=== PATIENT | male | born 1955 | race Caucasian/White ===

== ENCOUNTER 2019-05-30 03:56 | Inpatient (IN) | payer MEDICARE, SELFPAY ==
[2019-05-30] VITALS (22 sets, daily range): BP systolic 103–209; BP diastolic 52–119; PULSE 64–109; RESP 14–23; TEMP 35.7–36.9; O2SAT 48–100; BMI 34.9
--- NOTE | ~2019-05-30 | XR_ITS ---
EXAMINATION: XR chest 1V portable DATE: 05/31/2019 06:27 INDICATION: Pneumonia. Pulmonary edema. TECHNIQUE: A single frontal view of the chest was obtained. COMPARISON: Chest single view 05/30/2019, chest CT 05/30/2019 FINDINGS: The patient is rotated to his left. There are airspace opacities at left lung base. There a re perihilar airspace opacities bilaterally. There is a small left pleural effusion. No pneumothorax. The heart size is normal. There is a left chest wall pacer with leads in the right atrium and right ventricle. The endotracheal tube tip is 5.6 cm above the kody. The nasogastric tube tip is beyond t he inferior margin of the radiograph, but at least to the stomach. IMPRESSION: 1. Worsened airspace opacities at left lung base and improved bilateral perihilar airspace opacities, consistent with pulmonary edema versus pneumonia. 2. Stable small left pleural effusion. Reviewed, dictated and finalized at location A. IMPRESSION: 1. Worsened airspace opacities at left lung base and improved bilateral perihil ar airspace opacities, consistent with pulmonary edema versus pneumonia. 2. Stable small left pleural effusion.
--- NOTE | ~2019-05-30 | XR_ITS ---
EXAMINATION: XR chest PICC line INDICATION: PICC insertion TECHNIQUE: Portable AP chest at 1424 hours COMPARISON: 0513 hours FINDINGS: A right upper extremity PICC has been inserted which appears to end at the superior cavoatr ial junction. Airspace opacities of the lung bases persist without significant change. The endotrache al tube ends approximately 5.7 cm above the kody. The nasogastric tube is followed as far as the s tomach. Its tip is beyond the inferior margin of the radiograph. A dual-lead cardiac pacemaker of the left chest wall ends with leads in expected locations. There is stable cardiomegaly. IMPRESSION: 1. Right upper extremity PICC ending at the superior cavoatrial junction. 2. Stable bibasilar airspace opacity, consistent with atelectasis versus pneumonia. 3. Cardiomegaly. Reviewed, dictated and finalized at location A. IMPRESSION: 1. Right upper extremity PICC ending at the superior cavoatrial junction. 2. Stable bibasilar airspace opacity, consistent with atelectasis versus pneumo gina. 3. Cardiomegaly.
--- NOTE | ~2019-05-30 | XR_ITS ---
EXAMINATION: XR chest 1V portable DATE: 06/04/2019 05:23 INDICATION: Pneumonia. Pulmonary edema. TECHNIQUE: A single frontal view of the chest was obtained. COMPARISON: Chest single view 06/03/2019, chest CT 05/30/2019 FINDINGS: The patient is rotated to his left. There are airspace opacities in the lower lung zones. T here is a small left pleural effusion. No pneumothorax. Cardiomegaly is noted. There is a left chest wall pacer with leads in the right atrium and right ventricle. The endotracheal tube tip is 5.9 cm ab ove the kody. The nasogastric tube tip is beyond the inferior margin of the radiograph, but at leas t to the stomach. IMPRESSION: 1. Stable airspace opacities in the lower lung zones, consistent with atelectasis versus pneumonia. 2. Stable small left pleural effusion. 3. Cardiomegaly. Reviewed, dictated and finalized at location A. IMPRESSION: 1. Stable airspace opacities in the lower lung zones, consistent with atelectas is versus pneumonia. 2. Stable small left pleural effusion. 3. Cardiomegaly.
--- NOTE | ~2019-05-30 | XR_ITS ---
EXAMINATION: XR chest 1V portable DATE: 06/02/2019 05:53 INDICATION: Pneumonia. Pulmonary edema. TECHNIQUE: A single frontal view of the chest was obtained. COMPARISON: Chest single view 06/01/2019 FINDINGS: There are airspace opacities in the perihilar regions and at left lung base. There is a sma ll left pleural effusion. No pneumothorax. Cardiomegaly is noted. There is a left chest wall pacer wi th leads in the right atrium and right ventricle. The endotracheal tube tip is 5.1 cm above the patrick a. The nasogastric tube tip is beyond the inferior margin of the radiograph, but at least to the stom ach. IMPRESSION: 1. Airspace opacities in the perihilar regions and at left lung base with interval improvement, consi stent with pulmonary edema versus pneumonia. 2. Small left pleural effusion. 3. Cardiomegaly. Reviewed, dictated and finalized at location A. IMPRESSION: 1. Airspace opacities in the perihilar regions and at left lung base with inter ayo improvement, consistent with pulmonary edema versus pneumonia. 2. Small left pleural effusion. 3. Cardiomegaly.
--- NOTE | ~2019-05-30 | CT_ITS ---
EXAMINATION: CT brain wo con INDICATION: Cardiac arrest today COMPARISON: None TECHNIQUE: Standard unenhanced head CT. The dose-length product (DLP) was 908.00 mGy-cm. The mA was a djusted according to patient size. Iterative reconstruction technique was employed. FINDINGS: There is no intracranial hemorrhage, acute infarction, or abnormal mass lesion. The ventric les are normal. There is no abnormal mass effect or midline shift. The farias-white matter differentiat ion is normal. The basal cisterns are patent. The orbits are normal. The paranasal sinuses, mastoids and calvarium are normal. IMPRESSION: 1. No acute intracranial abnormality. Reviewed, dictated and finalized at location B.
--- NOTE | ~2019-05-30 | XR_ITS ---
EXAMINATION: XR chest ET placement INDICATION: Endotracheal tube insertion TECHNIQUE: Portable AP chest at 1107 hours COMPARISON: None available FINDINGS: An endotracheal tube has been inserted which ends 4.8 cm above the kody. The nasogastric tube is followed as far as the stomach. Its tip is beyond the inferior margin of the radiograph. Card iomegaly is noted. Diffuse interstitial and airspace opacities are present. A dual-lead cardiac pacem [place] of the left chest wall ends with leads in expected locations. IMPRESSION: 1. Endotracheal and nasogastric tubes in adequate position. 2. Diffuse lung disease, likely pulmonary edema. 3. Cardiomegaly. Reviewed, dictated and finalized at location B.
--- NOTE | ~2019-05-30 | CT_ITS ---
EXAMINATION: CTA chest PE protocol DATE: 05/30/2019 04:42 INDICATION: Cardiac arrest. TECHNIQUE: Computed tomography angiography (CTA) of the chest was performed with 100 mL Omnipaque-350 intravenous contrast timed to evaluate the pulmonary arteries. Coronal maximum intensity projection 3D-reconstructions were created by the technologist. Automated exposure control and iterative reconst ruction technique were employed. The dose-length product was 1104.71 mGy-cm. COMPARISON: Chest CT 12/11/2014 FINDINGS: Motion artifact is noted. There are small pleural effusions. There is mild atelectasis bila terally. There is smooth septal thickening bilaterally. There are groundglass opacities in the perihi lar regions and lower lobes. There are also airspace opacities in superior segment right lower lobe. Cardiomegaly is noted. There is a small pericardial effusion. There are coronary artery calcification s. There is a left chest wall pacer with leads in the right atrium and right ventricle. The endotrach eal tube tip is in expected position above the kody. There is mediastinal, bilateral hilar, and tavia ateral supraclavicular lymphadenopathy. For example, a left supraclavicular node measures 2.1 x 1.5 c m. The liver demonstrates a nodular surface contour. Periportal lymphadenopathy is noted. There is no pulmonary embolus. There are bridging endplate osteophytes at multiple levels in the spine, consiste nt with diffuse idiopathic skeletal hyperostosis (DISH). There are acute fractures of the anterior ri ght fourth through sixth ribs and left fifth rib. IMPRESSION: 1. No pulmonary embolus. Sensitivity is moderately decreased by motion artifact. 2. Diffuse lung disease, likely moderate pulmonary edema. 3. Airspace and groundglass opacities in superior segment right lower lobe, consistent with pneumonia . 4. Small pleural effusions. 5. Cardiomegaly. 6. Small pericardial effusion. 7. Nodular liver surface suspicious for cirrhosis. 8. Bilateral acute anterior rib fractures. 9. Chronic chest lymphadenopathy. Abdominal lymphadenopathy not included on the prior CT. These findi ngs are likely reactive. Reviewed, dictated and finalized at location A. IMPRESSION: 1. No pulmonary embolus. Sensitivity is moderately decreased by motion artifact . 2. Diffuse lung disease, likely moderate pulmonary edema. 3. Airspace and groundglass opacities in superior segment right lower lobe, con sistent with pneumonia. 4. Small pleural effusions. 5. Cardiomegaly. 6. Small pericardial effusion. 7. Nodular liver surface suspicious for cirrhosis. 8. Bilateral acute anterior rib fractures. 9. Chronic chest lymphadenopathy. Abdominal lymphadenopathy not included on the prior CT. These findings are likely reactive.
--- NOTE | ~2019-05-30 | XR_ITS ---
EXAMINATION: XR abdomen NG/feed tube insert DATE: 05/30/2019 08:05 INDICATION: Nasogastric tube placement. TECHNIQUE: A supine view of the abdomen was obtained. COMPARISON: None. FINDINGS: The lower abdomen is excluded. There are no dilated loops of bowel. The nasogastric tube ti p is in the stomach. There are pacer wires in right atrium and right ventricle. IMPRESSION: 1. Nasogastric tube tip in the stomach. Reviewed, dictated and finalized at location A.
--- NOTE | ~2019-05-30 | CT_ITS ---
EXAMINATION: CT brain wo con DATE: 06/04/2019 10:08 INDICATION: Seizure. Acute encephalopathy. TECHNIQUE: Computed tomography (CT) of the head was performed without intravenous contrast. The mA wa s adjusted according to patient size. Iterative reconstruction technique was employed. The dose-lengt h product was 681.00 mGy-cm. COMPARISON: Head CT 05/30/2019 FINDINGS: There is no intracranial hemorrhage, acute infarction, or abnormal intracranial mass lesion . There is a developmental venous anomaly in posterior left frontal lobe. The ventricles are normal i n size. The orbits are normal. There is mild mucosal thickening in the paranasal sinuses. The mastoid air cells are normal. IMPRESSION: 1. Normal brain. Reviewed, dictated and finalized at location A. IMPRESSION: 1. Normal brain.
--- NOTE | ~2019-05-30 | XR_ITS ---
XR chest 1V portable DATE: 05/30/2019 14:59 INDICATION: Intubation TECHNIQUE: Portable AP chest on 05/30/2019 at 1450 hours COMPARISON: 05/30/2019 portable AP chest at 1107 hours FINDINGS: The endotracheal tube tip is 3.3 cm above the kody in satisfactory position. A nasogastri c tube is noted in the stomach. Left dual-lead pacemaker/defibrillator with leads overlying right atrium and right ventricle. There is pulmonary vascular congestion and redistribution and there are bilateral primarily central a nd lower lung infiltrates suggesting pulmonary edema. Superimposed pneumonia or aspiration is not exc luded. Small pleural effusions are suggested. IMPRESSION: Congestive changes, pulmonary edema, without significant change since 05/29 at 1107 hours ET and NG tubes in satisfactory position Reviewed, dictated and finalized at location A. IMPRESSION: Congestive changes, pulmonary edema, without significant change sin ce 05/29 at 1107 hours ET and NG tubes in satisfactory position
--- NOTE | ~2019-05-30 | XR_ITS ---
EXAMINATION: XR chest 1V portable DATE: 06/05/2019 05:46 INDICATION: Intubated. TECHNIQUE: A single frontal view of the chest was obtained. COMPARISON: Chest single view 06/04/2019, chest CT 05/30/2019 FINDINGS: There are airspace opacities in the perihilar regions and at left lung base. There is a sma ll left pleural effusion. No pneumothorax. The heart size is normal. There is a left chest wall pacer with leads in the right atrium and right ventricle. The endotracheal tube tip is 6.0 cm above the ca homero. The nasogastric tube tip is beyond the inferior margin of the radiograph, but at least to the s tomach. A right upper extremity peripherally inserted central venous catheter (PICC) is seen with tip at the superior cavoatrial junction. IMPRESSION: 1. Airspace opacities in the perihilar regions and at left lung base with interval worsening at left perihilar region, consistent with pulmonary edema versus pneumonia. 2. Stable small left pleural effusion. Reviewed, dictated and finalized at location A. IMPRESSION: 1. Airspace opacities in the perihilar regions and at left lung base with inter ayo worsening at left perihilar region, consistent with pulmonary edema versus pneumonia. 2. Stable small left pleural effusion.
--- NOTE | ~2019-05-30 | XR_ITS ---
EXAMINATION: XR chest 1V portable DATE: 06/03/2019 05:55 INDICATION: Pneumonia. Pulmonary edema. TECHNIQUE: frontal view of the chest was obtained. COMPARISON: Chest radiograph dated 06/02/2019 FINDINGS: Endotracheal tube tip 3.5 cm above the kody. Nasogastric tube extends below the left hemidiaphragm with distal tip collimated off the study. Improvement in airspace opacities at the left lower lung zone. Decreased small left pleural effusion. Right lung is clear. No pneumothorax or right-sided pleural effusion. The cardiomediastinal silhouet te is normal. Dual lead pacemaker/AICD seen with leads projecting over the expected locations of the right atrium and right ventricle. IMPRESSION: 1. Significant improvement in opacities in the left lower lung zone which given the rapidity of impro vement likely represented pulmonary edema and/or atelectasis although pneumonia not excludable. 2. Decreasing small left pleural effusion. Reviewed, dictated and finalized at location A. IMPRESSION: 1. Significant improvement in opacities in the left lower lung zone which given the rapidity of improvement likely represented pulmonary edema and/or atelecta sis although pneumonia not excludable. 2. Decreasing small left pleural effusion.
--- NOTE | ~2019-05-30 | XR_ITS ---
EXAMINATION: XR chest 1V portable DATE: 06/01/2019 06:30 INDICATION: Pneumonia. Pulmonary edema. TECHNIQUE: A single frontal view of the chest was obtained. COMPARISON: Chest single view 05/31/2019, chest CT 05/30/2019 FINDINGS: The patient is rotated to his left. There are airspace opacities in the mid and lower lung zones, worst at left lung base. There are small pleural effusions. No pneumothorax. Cardiomegaly is n oted. There is a left chest wall pacer with leads in the right atrium and right ventricle. The endotr acheal tube tip is 5.2 cm above the kody. The nasogastric tube tip is in the stomach. IMPRESSION: 1. Unchanged airspace opacities in the mid and lower lung zones, worse at left lung base, consistent with pulmonary edema versus pneumonia. 2. Small pleural effusions. 3. Cardiomegaly. Reviewed, dictated and finalized at location A.
--- NOTE | ~2019-05-30 | US_ITS ---
EXAMINATION: US venous doppler [facility] DATE: 05/30/2019 11:11 INDICATION: Lower limb swelling. TECHNIQUE: Grayscale ultrasound images without and with compression and Doppler ultrasound images of the bilateral lower extremity veins were obtained. COMPARISON: Ultrasound 12/12/2014 FINDINGS: The visualized portions of right common femoral vein, profunda (deep) femoral vein, femoral vein, pop liteal vein, and posterior tibial veins are patent. The visualized portions of left common femoral vein, profunda femoral vein, femoral vein, popliteal v ein, and posterior tibial veins are patent. In medial left calf, there is a 6.4 x 2.3 x 5.8 cm hypoec hoic mass. IMPRESSION: 1. No deep venous thrombosis. 2. Mass in the medial left calf, likely a hematoma. Reviewed, dictated and finalized at location A.
[2019-05-30 04:06] LABS: Glucose Point of Care 193 (65-105)
[2019-05-30 04:33] LABS: Basophils Absolute Auto 0.1 K/mm3 (0.0-0.1); Basophils Percent Auto 0.6 % (0.2-1.2); Eosinophils Absolute Auto 0.4 K/mm3 (0-0.3); Eosinophils Percent Auto 1.7 % (0-4.4); Hematocrit 49.1 % (42.0-52.0); Hemoglobin 14.8 g/dL (14.0-18.0); Immature Granulocyte Absolute 0.19 K/mm3 (0.00-0.031); Immature Granulocyte Percent A 0.8 % (0-0.5); Lymphocytes Absolute Auto 10.63 K/mm3 (0.9-3.2); Lymphocytes Percent Auto 46.8 % (18.3-44.2); Mean Corpuscular HGB Conc 30.1 g/dl (32-36); Mean Corpuscular Hemoglobin 28.1 pg (26-34); Mean Corpuscular Volume 93.2 fl (80-100); Mean Platelet Volume 10.8 fl (7.4-10.4); Monocytes Absolute Auto 0.9 K/mm3 (0.1-0.6); Monocytes Percent Auto 3.9 % (2.6-8.5); Neutrophils Absolute Auto 10.5 K/mm3 (1.3-6.7); Neutrophils Percent Auto 46.2 % (45.5-73.1); Nucleated Red Blood Cells Perc 0.1 % (0.0-0.2); Platelet Count Result 259 k/mm3 (150-375); Red Blood Count 5.27 M/mm3 (4.6-6.20); Red Cell Distribution Width 15.3 % (11.5-14.5); White Blood Count 22.7 K/mm3 (4.5-10.0)
--- NOTE | 2019-05-30 04:36 | ED.SOB ---
HPI - SOB/Dyspnea General Chief Complaint: Shortness of Breath/Dyspnea Stated Complaint: sob Time Seen by Provider: 05/30/19 04:13 History of Present Illness HPI Narrative: Patient is a 64-year-old male who presents ER patient has history of CHF and is on apixaban for atrial fibrillation. He has an implanted pacemaker and defibrillator. 1 week ago patient was on a ladder and fell injuring his left leg. Left leg has been bruised and swollen over the last week. Tonight he was unable to get comfortable while laying in bed and was generally restless according to the . He then went up to sit in his chair and then told his that he could not breathe. She placed him on his CPAP and then they came to the ER by private vehicle. Upon entering the room patient lost pulses and CPR was started. History was obtained from the . Related Data Home Medications Medication Instructions Recorded Confirmed apixaban 5 mg tablet 5 mg PO BID 04/24/19 aspirin 81 mg tablet,delayed 81 mg PO DAILY 04/24/19 release canagliflozin 100 mg tablet 100 mg PO DAILY 04/24/19 furosemide 40 mg tablet 40 mg PO QAM 04/24/19 lisinopril 20 mg tablet 20 mg PO DAILY 04/24/19 simvastatin 20 mg tablet 20 mg PO DAILY 04/24/19 Allergies Allergy/AdvReac Type Severity Reaction Status Date / Time No Known Allergies Allergy Unverified 12/11/14 10:28 Review of Systems Review of Systems: ROS unobtainable: Yes unobtainable due to medical condition PMFSH Past Medical History Medical History (Updated 05/30/19 @ 06:09 by Graham Veliz MD) Atherosclerotic heart disease of [place] coronary artery with other forms of angina pectoris Enlarged prostate without lower urinary tract symptoms (luts) Essential (primary) hypertension Hepatitis C antibody test negative (12/12/16) Metabolic syndrome Mixed hyperlipidemia Obesity, unspecified Obstructive sleep apnea (adult) (pediatric) Old myocardial infarction Pacemaker Paroxysmal atrial fibrillation Type 2 diabetes mellitus without complications Social History Social History Smoking status: Never smoker Alcohol intake: never Exam Narrative: Exam Narrative: GENERAL: Obese and unresponsive. HEAD: Normocephalic, atraumatic. EYES: Pupils mid dilated and sluggishly reactive. ENT: Mucous membranes moist. CHEST: No spontaneous respirations. HEART: Pulseless, poor capillary refill. ABDOMEN: Soft, nontender, nondistended. EXTREMITIES: No spontaneous movements. Left lower extremity larger than the right lower extremity with bruising and palpable hematomas from the knee down. SKIN: Warm, pale/normal, dependent ecchymosis left lower extremity. NEURO: GCS 3. Procedures Intubation Intubation #1: Intubation Date: 05/30/19 Intubation Time: 04:10 Time out performed: No sedative: none Laryngoscope: Yomi (3) Tube Size (cm): 7.5 Method of Intubation: orotracheal Number of Attempts: 1 Tube Placement Confirmation: equal breath sounds bilaterally, no breath sounds over epigastrium and confirmation by capnometry Patient Tolerated Procedure: well and no complications Intubation Complications: none IO Right Tibia: IO Date: 05/30/19 IO Time: 04:06 Time Out Performed: No Local Anesthetic: none Prep: other (alcohol wipe) IO Instrument Used to Penetrate the Cortex: battery powered IO drill Post Procedure: aspirated marrow and easily flushes Patient Tolerated Procedure: well MDM - SOB/Dyspnea Lab Data Result diagrams: 05/30/19 04:10 05/30/19 04:10 Labs: Lab Results 05/30/19 05/30/19 05/30/19 Range/Units 04:04 04:10 04:10 WBC Pending RBC Pending Hgb Pending Hct Pending MCV Pending MCH Pending MCHC Pending RDW Pending Plt Count Pending MPV Pending
[2019-05-30 04:40] LABS: INR 1.1; Prothrombin Time 13.4 Seconds (11.1-14.7)
[2019-05-30 04:41] LABS: Partial Thromboplastin Time 28.1 SECONDS (22.3-36.8)
[2019-05-30 04:50] LABS: Lactic Acid Reflex 7.6 mmol/L (0.7-2.1)
[2019-05-30 04:59] LABS: Base Excess ABG -10.9 mEq/l (+/-2.0); Fractional Inspired Oxygen 100 %; HCO3 ABG 18.8 mEq/l (22.0-26.0); Methemoglobin ABG 0.3 %THb (0-1.5); Oxygen Content ABG 18.5 %vol (16.0-22.0); Oxygen Saturation ABG 98.4 % (95.0-100.0); Oxyhemoglobin 96.9 % THb (90.0-100.0); PCO2 ABG 58.5 mmHg (35.0-45.0); PO2 ABG 159.5 mmHg (80.0-100.0); Reduced Hemoglobin 1.8 %THb (0-5.0); Total Hemoglobin 13.4 g/dL (12.0-18.0)
[2019-05-30 05:00] LABS: pH ABG 7.124 (7.350-7.450)
--- NOTE | 2019-05-30 05:00 | ECG_ITS ---
Measurements Intervals [place] Rate: 84 P: 143 CA: 152 QRS: 119 QRSD: 184 T: -47 QT: 434 QTc: 513 Interpretive Statements ELECTRONIC VENTRICULAR PACEMAKER FUSION COMPLEX BASELINE ARTIFACT- I, III, AVR, AVL, AVF, V1-V3 NO FURTHER INTERPRETATION IS POSSIBLE ATYPICAL ECG Electronically Signed On 05-30-2019 8:23:35 CDT by Lang Trevino D.O.
[2019-05-30 05:01] LABS: Device VENTILATOR; Modified Allen's Test Pass; Site Drawn RIGHT RADIAL
[2019-05-30 05:02] LABS: Arterial Blood Gas PEEP 5 cmH2O; Arterial Blood Gas Tidal Volume 500 ml; Arterial Blood Gas Vent Mode CMV; Arterial Blood Gas Ventilator rate 14 /MIN
[2019-05-30 05:30] LABS: NT Pro B Type Natriuretic Pept 1030 PG/ML (5-100)
[2019-05-30] MEDS: MIDAZOLAM HCL 2 MG/2 ML VIAL IV PUSH (05:40)
[2019-05-30 05:51] LABS: Alkaline Phosphatase 57 U/L (38-126); Aspartate Amino Transferase 27 U/L (17-59); Blood Urea Nitrogen 17 mg/dL (9-20); Calcium 8.5 mg/dL (8.4-10.2); Carbon Dioxide 20 mmol/L (22-30); Chloride 103 mmol/L (98-107); Estimated CRCL calculation 117 ml/min; Estimated Glomerular Filt Rate > 60; Glucose 301 mg/dL (75-110); Potassium 4.3 mmol/L (3.4-5.0); Sodium 141 mmol/L (137-145); Troponin I 0.252 ng/mL (0.000-0.034)
[2019-05-30] MEDS: MIDAZOLAM HCL 50 MG in DEXTROSE 5% 90 ML IV CONT ×2 (06:26→08:39)
[2019-05-30] MEDS: FUROSEMIDE INJ 40 MG/4 ML VIAL IV PUSH ×2 (06:27→17:03)
[2019-05-30 06:37] LABS: Alanine Aminotransferase 25 U/L (4-50)
--- NOTE | 2019-05-30 07:21 | PC.NURSE ---
Fentanyl is going at 2.5ml/hr per MD Veliz verbal order to run at 25mcg/hr. Medication bag states to run at 0ml/hr. Called pharmacy ([facility]) states to run at 2.5ml far as conversion.
--- NOTE | 2019-05-30 07:23 | PC.NURSE ---
Resp called to come evaluate tube due to secretions being seen, this RN suctioned once
[2019-05-30 07:24] LABS: Reflex Lactic Acid Yes or No Add Lactic
--- NOTE | 2019-05-30 07:50 | PC.NURSE ---
COVID-19 swab obtained and sent to the lab.
[2019-05-30] MEDS: levETIRAcetam 1000MG/NACL100ML 1,000 MG/100 ML BAG 400 MG IVPB (09:20)
[2019-05-30] MEDS: PANTOPRAZOLE SODIUM IV 40 MG VIAL IV PUSH (09:21)
[2019-05-30] MEDS: ENOXAPARIN 40 MG/0.4 ML SYRINGE SUB-Q (09:21)
[2019-05-30 10:08] LABS: Alveolar/Arterial O2 Gradient 386.8 mmHg; Base Excess ABG -2.4 mEq/l (+/-2.0); Fractional Inspired Oxygen 70 %; HCO3 ABG 22.3 mEq/l (22.0-26.0); Oxygen Content ABG 18.3 %vol (16.0-22.0); Oxygen Saturation ABG 94.2 % (95.0-100.0); Oxyhemoglobin 92.9 % THb (90.0-100.0); PCO2 ABG 38.3 mmHg (35.0-45.0); PO2 ABG 71.1 mmHg (80.0-100.0); PO2 FiO2 Ratio Arterial Blood 1.02 %; Site Drawn LEFT RADIAL; pH ABG 7.383 (7.350-7.450)
[2019-05-30 10:09] LABS: Arterial Blood Gas PEEP 8 cmH2O; Arterial Blood Gas Tidal Volume 500 ml; Arterial Blood Gas Vent Mode CMV; Arterial Blood Gas Ventilator rate 18 /MIN; Device VENTILATOR; Modified Allen's Test Pass
--- NOTE | 2019-05-30 10:53 | ADMGEN ---
This patient, Andrea Jefferson, was admitted to Intensive Care Unit-3. Patient/family oriented to hospital policies and general routines including ID bracelet, bed and alarms, visiting hours, pain management, procedures, bathroom and other care routines, personal items, smoking policy, room service/diet, and visiting hours. Valuables list has been completed. Information on how to activate the Rapid Response Team has been discussed. Patient/Family are encouraged to report perceived risks to care and to ask questions if they do not understand what they are told or what they should do.
--- NOTE | 2019-05-30 10:53 | PC.NURSE ---
PATIENTS ([facility]) CALLED TO COMPLETE ADMISSION. UPDATES GIVEN AND ALL QUESTIONS ANSWERED.
[2019-05-30 11:00] LABS: Lactic Acid 1.7 mmol/L (0.7-2.1)
[2019-05-30 11:04] LABS: CRP 2.5 mg/dL (<1.0); Lactate Dehydrogenase 625 U/L (313-618)
[2019-05-30 11:36] LABS: D Dimer 3.88 ug/mL (<0.48)
--- NOTE | 2019-05-30 12:00 | WPDCNINT ---
Assessment and Plan Assessment and plan (1) Acute respiratory failure: Code(s): J96.00 - Acute respiratory failure, unspecified whether with hypoxia or hypercapnia Status: Acute Assessment and Plan: patient presented with acute respiratory failure requiring intubation - currently on mechanical ventilation, CMV mode, 8 of PEEP, 70% FiO2 - chest x-ray and ABGs reviewed - will order albuterol and Spiriva MDI - continue fentanyl Versed infusion for sedation and ventilator synchrony (2) Cardiopulmonary arrest with successful resuscitation: Code(s): I46.9 - Cardiac arrest, cause unspecified Status: Acute Assessment and Plan: patient with cardiac arrest, ROSC within 10 minutes. Mainly a respiratory per ED physician - continue full mechanical ventilation, ventilator adjusted after reviewing this chest x-ray and ABGs - continue diuresis - continue vanc and Zosyn - SARs-COV-2 PCR has been sent - leukocytosis with normal lymphocytes, normal ferritin, elevated LDH, mildly elevated CRP. Calcitonin pending, D-dimer elevated (3) CHF (congestive heart failure): Qualifiers: Heart failure chronicity: unspecified Heart failure type: unspecified Qualified Code(s): I50.9 - Heart failure, unspecified Code(s): I50.9 - Heart failure, unspecified Status: Acute Assessment and Plan: patient with history of heart failure, AICD, dual chamber, interrogated this morning,no shocks were noted, patient was in AFib Earlier on the day of admission. - echocardiogram ordered and pending report - continue diuresis and mechanical ventilation - (4) Pneumonia: Qualifiers: Laterality: right Lung location: lower lobe of lung Pneumonia type: due to unspecified organism Qualified Code(s): J18.9 - Pneumonia, unspecified organism Code(s): J18.9 - Pneumonia, unspecified organism Status: Acute Assessment and Plan: CT scan showed right-sided pneumonia, given patient's condition, patient was started on vancomycin and Zosyn - cultures have been obtained - lactic acid normalized - blood cultures obtained and pending - Sputum cultures on (5) Type 2 diabetes mellitus without complications: Qualifiers: Diabetes mellitus salvage determiner insulin use: without usp use Qualified Code(s): E11.9 - Type 2 diabetes mellitus without complications Code(s): E11.9 - Type 2 diabetes mellitus without complications Status: Acute Assessment and Plan: sliding scale insulin and Accu-Cheks (6) Mixed hyperlipidemia: Code(s): E78.2 - Mixed hyperlipidemia Status: Acute Assessment and Plan: continue statin (7) Paroxysmal atrial fibrillation: Code(s): I48.0 - Paroxysmal atrial fibrillation Status: Acute Assessment and Plan: history of proximal AFib, currently in sinus rhythm rate control, will continue to monitor. Patient on Eliquis at home, will continue (8) DVT prophylaxis: Code(s): Z29.9 - Encounter for prophylactic measures, unspecified Status: Acute Assessment and Plan: DVT prophylaxis: Eliquis Stress ulcer prophylaxis: Protonix Additional Plan discussed with aidee Maradiaga with patient's condition and plan of care. I answered all questions. I was also able to obtain an adequate history From her . Code status: Full code Critical care time spent: 48 minutes Due to a high probability of clinically significant, life threatening deterioration, the patient required my highest level of preparedness to intervene emergently and I personally spent this critical care time directly and personally managing the patient. This critical care time included obtaining a history; examining the patient; pulse oximetry; ordering and review of studies; arranging urgent treatment with development of a management plan; evaluation of patient's response to treatment; frequent reassess
[2019-05-30 12:19] LABS: Glucose Point of Care 246 (65-105)
--- NOTE | 2019-05-30 12:41 | PM.IMHP ---
H&P: HPI History of Present Illness Chief complaint: Pneumonia, CHF Narrative: Date of visit 05/29 [id number] Andrea Jefferson is a 64 year old white male with type 2 diabetes mellitus is obstructive sleep apnea and status post AICD for VFib arrest in 2014 and history of combined systolic diastolic heart failure who presented to the emergency room by private vehicle acutely short of breath. Shortly after entering exam room became apneic pulseless and CPR was instituted. ROSC was estimated to occur within 10 minutes the thought to be primary a respiratory arrest. He was intubated and transferred to the ICU after IV Lasix seeing good diuresis. Patient apparently had been feeling well on somewhat short of breath according to the records starting last evening. CTA of the chest revealed no emboli but there was pneumonia with some ground glass appearance so patient was also tested for COVID. Patient is unresponsive in the ICU and history is obtained totally from the chart. Significantly the patient did have a cardiac catheterization in 2009 with normal coronary arteries. Review of Systems Review of Systems: Narrative: unobtainable at this time since patient is intubated and unresponsive. records indicates he had been doing well till approximately 24-48 hours prior to admission. He had fallen bruising his left leg approximately a week ago [facility] Past Medical History Medical History (Updated 05/30/19 @ 12:51 by Omar Dodson MD) Atherosclerotic heart disease of [place] coronary artery with other forms of angina pectoris Enlarged prostate without lower urinary tract symptoms (luts) Essential (primary) hypertension Hepatitis C antibody test negative (12/12/16) Metabolic syndrome Mixed hyperlipidemia Obesity, unspecified Obstructive sleep apnea (adult) (pediatric) Old myocardial infarction Pacemaker Paroxysmal atrial fibrillation Type 2 diabetes mellitus without complications Social History Social History Smoking status: Never smoker Alcohol intake: never Substance use: never Gender identity (if verbalized by the patient): Male Spiritual care concerns: No Agree to blood products: Yes Meds Home Medications and Allergies Home Medications Medication Instructions Recorded Confirmed Type carvedilol 25 mg tablet 25 mg PO BID #30 tablet 03/04/19 05/30/19 Rx glipizide 5 mg tablet 5 mg PO BID #30 tablet 03/04/19 05/30/19 Rx metformin 850 mg tablet 850 mg PO TID #30 tablet 03/04/19 05/30/19 Rx potassium chloride 10 mEq 10 meq PO DAILY #30 cap 03/04/19 05/30/19 Rx capsule,extended release amlodipine 10 mg tablet 10 mg PO DAILY #90 tablet 04/17/19 05/30/19 Rx apixaban 5 mg tablet 5 mg PO BID 04/24/19 05/30/19 History aspirin 81 mg tablet,delayed 81 mg PO DAILY 04/24/19 05/30/19 History release canagliflozin 100 mg tablet 100 mg PO DAILY 04/24/19 05/30/19 History furosemide 40 mg tablet 40 mg PO QAM 04/24/19 05/30/19 History lisinopril 20 mg tablet 20 mg PO DAILY 04/24/19 05/30/19 History simvastatin 20 mg tablet 20 mg PO DAILY 04/24/19 05/30/19 History Allergies Allergy/AdvReac Type Severity Reaction Status Date / Time No Known Allergies Allergy Unverified 12/11/14 10:28 Vital Signs Vital Signs - 24 hr 05/30/19 04:05 05/30/19 04:25 05/30/19 04:52 Temperature Pulse Rate 68 Respiratory Rate Blood Pressure 157/116 H Pulse Oximetry 100 48 L 05/30/19 05:20 05/30/19 07:31 05/30/19 07:56 Temperature 36.3 C L 35.8 C L Pulse Rate 66 79 64 Respiratory Rate 14 Blood Pressure 134/89 122/74 Pulse Oximetry 99 99 100 05/30/19 08:40 05/30/19 10:14 Temperature 35.7 C L Pulse Rate 69 Respiratory Rate 16 Blood Pressure 131/78 Pulse Oximetry 95 64 L Exam Narrative: Exam Narrative: blood pressure is 130/78 pulse is 70 saturating 100% on FiO2 of 100% with a peep of 5 on the ventilator. Afebrile pupils are equal and sluggish s
[2019-05-30] MEDS: INSULIN ASPART (*BKC) 100 UNITS/ML SUB-Q (13:20)
--- NOTE | 2019-05-30 14:11 | PM.CNCAR ---
Assessment and Plan Additional Plan this is a 64-year-old man who has a history of a previously established nonischemic cardiomyopathy who also now apparently has the history of paroxysmal atrial fib and a cardiac arrest that was treated at [facility] after which she has a permanently implantable [employer] ICD. He has a acute respiratory failure event prompting intubation and placement on mechanical ventilator. This appears to be primarily AVR respiratory event there were no ventricular arrhythmias or evidence of a cardiac arrest after his device was interrogated. His white count is elevated I would have to be highly suspicious that this is a acute respiratory event related to dasilva virus. Others that have evaluated this patient apparently have thought the is low risk for this. 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 Aggressive supportive care is already being delivered which is appropriate. At this time I do not think there are any specific cardiac recommendations to make. Fantasma Herrera MD [facility] History of Present Illness History of Present Illness Consult date/time: Date of service:05/30/19 14:11 Reason For Visit: Pneumonia, CHF Narrative: This is a 64year-old patient I am seeing at the request of the hospitalist because apparently he was admitted earlier this morning and had acute respiratory failure shortness of breath coming in from home. He was in respiratory extremis was intubated in the emergency department and admitted to the ICU for further evaluation and care. 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 This is a patient who has a history of will was felt to be a mild nonischemic cardiomyopathy primarily with right ventricular dysfunction and evidence of pulmonary hypertension that was attributed to suspected sleep apnea when he was evaluated by myself back in 2009. At that time he was found angiographically to have no evidence of significant coronary artery disease he did have some RV dysfunction and significant pulmonary hypertension with PA systolic pressures in the mid 60s. He was last seen by our practice back in 2012 he was arranged to have a routine office follow-up and failed those appointments and did not lower all wish to come back for further evaluation. He subsequently has become established with the cardiology department at [facility] apparently he has a history of now also paroxysmal atrial fibrillation as well as a history of a cardiac arrest which is mentioned in their notes the details of which are not specified. But because of this he has a implantable defibrillator as well. Apparently last evening while he was at home he began to experience shortness of breath this became severe he was brought to the hospital in his private vehicle and was a good as stated above intubated in the emergency department. He has not been running a fever from what I can see he does have a significant leukocytosis and bilateral pulmonary congestion on his chest x-ray for my review worse on the right than on the left. Troponin levels were sampled and are modestly elevated. He is E electrocardiogram shows an electronic AV sequentially paced rhythm at times has intrinsic sinus rhythm that appears to be appropriately stents. The staff did have the [employer] representative phlebotomy services interrogate his pacemaker /ICD there were no shocks delivered there was no evidence of a cardiac arrest. It appears clinically that this was primarily a respiratory event. His home medical regimen at this time
[2019-05-30] MEDS: LORAZEPAM INJ 2 MG/ML VIAL (14:54)
--- NOTE | 2019-05-30 15:02 | PC.NURSE ---
PATIENT TRANSFERRED TO [facility].
[2019-05-30] MEDS: APIXABAN 5 MG TABLET PO (17:03)
[2019-05-30 17:21] LABS: Glucose Point of Care 182 (65-105)
[2019-05-30] MEDS: ALBUTEROL SULFATE NEB 2.5 MG/0.5 ML INH 5 MG INHALATION (19:59)
[2019-05-30] MEDS: IPRATROPIUM BR 0.02% INH SOLN 0.5 MG/2.5 ML VIAL INHALATION (20:00)
[2019-05-30 21:29] LABS: Glucose Point of Care 162 (65-105)
[2019-05-30] MEDS: levETIRAcetam 500MG/NACL 100ML 500 MG/100 ML BAG 400 MG IVPB (21:45)
[2019-05-30] MEDS: MIDAZOLAM HCL 50 MG in DEXTROSE 5% 90 ML 6 MG IV CONT (23:24)
[2019-05-31] VITALS (30 sets, daily range): BP systolic 126–157; BP diastolic 55–80; PULSE 64–106; RESP 14–16; TEMP 36.6–38; O2SAT 97–100
[2019-05-31] MEDS: IPRATROPIUM BR 0.02% INH SOLN 0.5 MG/2.5 ML VIAL INHALATION ×4 (02:24→20:06)
[2019-05-31] MEDS: ALBUTEROL SULFATE NEB 2.5 MG/0.5 ML INH 5 MG INHALATION ×4 (02:24→20:06)
[2019-05-31 04:37] LABS: Hematocrit 47.2 % (42.0-52.0); Hemoglobin 14.9 g/dL (14.0-18.0); Mean Corpuscular HGB Conc 31.6 g/dl (32-36); Mean Corpuscular Hemoglobin 28.5 pg (26-34); Mean Corpuscular Volume 90.2 fl (80-100); Mean Platelet Volume 10.3 fl (7.4-10.4); Platelet Count Result 189 k/mm3 (150-375); Red Blood Count 5.23 M/mm3 (4.6-6.20); White Blood Count 15.1 K/mm3 (4.5-10.0)
[2019-05-31 04:46] LABS: Blood Urea Nitrogen 20 mg/dL (9-20); Carbon Dioxide 31 mmol/L (22-30); Chloride 100 mmol/L (98-107); Estimated CRCL calculation 131 ml/min; Estimated Glomerular Filt Rate > 60; Glucose 231 mg/dL (75-110); Phosphorus 3.9 mg/dL (2.5-4.5); Potassium 3.6 mmol/L (3.4-5.0); Sodium 140 mmol/L (137-145)
[2019-05-31 04:48] LABS: Lactic Acid 1.5 mmol/L (0.7-2.1)
[2019-05-31 05:07] LABS: Base Excess ABG 3.3 mEq/l (+/-2.0); Carboxyhemoglobin 0.3 % THb (0-2.0); Fractional Inspired Oxygen 100 %; Methemoglobin ABG 0.3 %THb (0-1.5); Oxygen Saturation ABG 95.8 % (95.0-100.0); Oxyhemoglobin 94.1 % THb (90.0-100.0); PCO2 ABG 48.3 mmHg (35.0-45.0); PO2 ABG 80.7 mmHg (80.0-100.0); PO2 FiO2 Ratio Arterial Blood 0.81 %; Reduced Hemoglobin 5.3 %THb (0-5.0); Total Hemoglobin 13.6 g/dL (12.0-18.0); pH ABG 7.396 (7.350-7.450)
[2019-05-31 05:08] LABS: Device VENTILATOR; Modified Allen's Test Pass; Site Drawn RIGHT RADIAL
[2019-05-31 05:09] LABS: Arterial Blood Gas PEEP 8 cmH2O; Arterial Blood Gas Tidal Volume 500 ml; Arterial Blood Gas Vent Mode CMV; Arterial Blood Gas Ventilator rate 14 /MIN
[2019-05-31] MEDS: INSULIN ASPART (*BKC) 100 UNITS/ML SUB-Q (06:13)
[2019-05-31] MEDS: FUROSEMIDE INJ 40 MG/4 ML VIAL IV PUSH ×2 (08:09→16:20)
[2019-05-31] MEDS: levETIRAcetam 500MG/NACL 100ML 500 MG/100 ML BAG 400 MG IVPB ×2 (08:10→21:17)
[2019-05-31] MEDS: POTASSIUM CHLORIDE 20 MEQ PACKET (FOR LIQUID) 40 MEQ PO ×2 (08:10→16:21)
[2019-05-31] MEDS: PANTOPRAZOLE SODIUM IV 40 MG VIAL IV PUSH (08:10)
[2019-05-31] MEDS: SIMVASTATIN 20 MG TABLET PO (08:10)
[2019-05-31] MEDS: APIXABAN 5 MG TABLET PO ×2 (08:11→16:21)
--- NOTE | 2019-05-31 09:17 | PM.PNCARD ---
Progress Note: A&P Assessment and Plan (1) Acute respiratory failure: Code(s): J96.00 - Acute respiratory failure, unspecified whether with hypoxia or hypercapnia Status: Acute Assessment and Plan: Fairly acute development of respiratory distress at home, with rapid decompensation in ER and subsequent arrest, intubation. Appears to have pneumonia and a degree of CHF as well. Still has high O2 requirement. No recent known COVID exposure, has been staying at home; COVID screen pending. (2) Cardiopulmonary arrest with successful resuscitation: Code(s): I46.9 - Cardiac arrest, cause unspecified Status: Acute Assessment and Plan: Mostly pulmonary arrest, no arrhythmias by ICD interogation. Neurologic status uncertain. Myoclonus suppressed w/ IV Keppra. Sedated. (3) Pneumonia: Qualifiers: Laterality: right Lung location: lower lobe of lung Pneumonia type: due to unspecified organism Qualified Code(s): J18.9 - Pneumonia, unspecified organism Code(s): J18.9 - Pneumonia, unspecified organism Status: Acute Assessment and Plan: Remains afebrile. High O2 needs. Tx per Critical Care team; on vanco and Zosyn (4) CHF (congestive heart failure): Qualifiers: Heart failure chronicity: unspecified Heart failure type: unspecified Qualified Code(s): I50.9 - Heart failure, unspecified Code(s): I50.9 - Heart failure, unspecified Status: Acute Assessment and Plan: Personally reivewed CXR, has small effusions and some degree of CHF, agree w/ IV diuresis. Resume lisinopril??? (5) Elevated troponin: Code(s): R79.89 - Other specified abnormal findings of blood chemistry Status: Acute Assessment and Plan: Probably Type 2 MA. BP stable and a bit high at times, not needing pressors. Subjective Date/time seen: 05/31/19 09:17 Interval history: 64-year-old man w h/o nonischemic cardiomyopathy, paroxysmal atrial fib implantable [employer] ICD followed at [facility]. He has acute respiratory failure and respiratory arrest, requiring intubation and placement on mechanical ventilator 05/30/2019. Elevated troponins but no h/o CAD. Being evaluated for pneumonia 2nd to possible dasilva virus. FU of cardiomyopathy and CHF. DATE OF SERVICE: 05/31/2019 NOt waking up but sedated. Some myoclonic jerks noted yesterday, now on IV Keppra. Remains on ventilator, requiring FiO2 80%. Sedated, getting IV vancomycin. Modest diuresis of -300 ccs on Lasix 40mg IVP BID. TRoponin up to 2.5. EKG yesterday showed ventricular pacing. COVID screen pending. Review of Systems Review of Systems: ROS unobtainable: Yes unobtainable due to endotracheal tube, unobtainable due to medical condition, unobtainable due to mental status and other (ROS obtained from pt's nurse Dr. Ge Davidson and the chart.) Constitutional: Constitutional: Reports as per HPI Cardiovascular: Cardiovascular: Reports as per HPI Respiratory: Respiratory: Reports as per HPI Comments: Intubated, requiring high level O2 Gastrointestinal: Comments: NPO Genitourinary: Comments: Devine Musculoskeletal: Musculoskeletal: Reports as per HPI Comments: No spontaneous movement Integumentary/Breasts: Skin/Breast: Reports as per HPI and Denies rash Neurologic: Reports as per HPI Comments: Some myoclonus noted yesterday Psychiatric: Psychiatric: Reports as per HPI Comments: Unresponsive Exam Const: General: comfortable Other: Severely ill WM intubated, multiple lines and tubes, unresponsive. HENMT: General nose exam: no epistaxis Resp: Effort & Inspection: normal respiratory effort Other: Normal chest expansion on vent Cardio: Other: NSR on Tele GI: Other: Appears obese, nondistended abdomen Urinary Ca
--- NOTE | 2019-05-31 11:55 | WPDINTPN ---
Progress Note: A&P Assessment and Plan (1) Acute respiratory failure: Code(s): J96.00 - Acute respiratory failure, unspecified whether with hypoxia or hypercapnia Status: Acute Assessment and Plan: patient presented with acute respiratory failure requiring intubation - currently on mechanical ventilation, CMV mode, 8 of PEEP,100% FiO2. Increased peep to 8 and will wean FiO2 to maintain O2 sats greater than 92% - chest x-ray and ABGs reviewed - continue albuterol and Spiriva MDI - continue fentanyl Versed infusion for sedation and ventilator synchrony, daily sedation vacation (2) Cardiopulmonary arrest with successful resuscitation: Code(s): I46.9 - Cardiac arrest, cause unspecified Status: Acute Assessment and Plan: patient with cardiac arrest, ROSC within 10 minutes. Mainly a respiratory per ED physician - continue full mechanical ventilation, ventilator adjusted after reviewing this chest x-ray and ABGs - continue diuresis - continue vanc and Zosyn - SARs-COV-2 PCR has been sent - leukocytosis with normal lymphocytes, normal ferritin, elevated LDH, mildly elevated CRP. Calcitonin pending, D-dimer elevated - patient did have some jerky movements, his AICD was interrogated, no shocks were recorded. (3) CHF (congestive heart failure): Qualifiers: Heart failure chronicity: unspecified Heart failure type: unspecified Qualified Code(s): I50.9 - Heart failure, unspecified Code(s): I50.9 - Heart failure, unspecified Status: Acute Assessment and Plan: patient with history of heart failure, AICD, dual chamber, interrogated this morning,no shocks were noted, patient was in AFib Earlier on the day of admission. - echocardiogram ordered and pending report - continue diuresis and mechanical ventilation - appreciate Cardiology evaluation and recommendation - (4) Pneumonia: Qualifiers: Laterality: right Lung location: lower lobe of lung Pneumonia type: due to unspecified organism Qualified Code(s): J18.9 - Pneumonia, unspecified organism Code(s): J18.9 - Pneumonia, unspecified organism Status: Acute Assessment and Plan: CT scan showed right-sided pneumonia, given patient's condition, continue vancomycin and Zosyn - cultures have been obtained - lactic acid normalized - blood cultures negative x2 so far - Sputum cultures on (5) Type 2 diabetes mellitus without complications: Qualifiers: Diabetes mellitus termite exterminator insulin use: without termite exterminator use Qualified Code(s): E11.9 - Type 2 diabetes mellitus without complications Code(s): E11.9 - Type 2 diabetes mellitus without complications Status: Acute Assessment and Plan: sliding scale insulin and Accu-Cheks (6) Mixed hyperlipidemia: Code(s): E78.2 - Mixed hyperlipidemia Status: Acute Assessment and Plan: continue statin (7) Paroxysmal atrial fibrillation: Code(s): I48.0 - Paroxysmal atrial fibrillation Status: Acute Assessment and Plan: history of proximal AFib, currently in sinus rhythm rate control, will continue to monitor. Patient on Eliquis at home, will continue (8) DVT prophylaxis: Code(s): Z29.9 - Encounter for prophylactic measures, unspecified Status: Acute Assessment and Plan: DVT prophylaxis: Eliquis Stress ulcer prophylaxis: Protonix (9) Hematoma of left lower extremity: Code(s): S80.12XA - Contusion of left lower leg, initial encounter Status: Acute Assessment and Plan: hematoma of the left lower extremity, will continue monitor H&H Additional Plan discussed with aidee Maradiaga with patient's condition and plan of care. I answered all questions. . Code status: Full code Critical care time spent: 33 minutes Due to a high probability of clinically significant, life threatening deterioration, the patient requi
[2019-05-31 12:15] LABS: Glucose Point of Care 184 (65-105)
[2019-05-31] MEDS: MIDAZOLAM HCL 50 MG in DEXTROSE 5% 90 ML IV CONT (14:57)
--- NOTE | 2019-05-31 15:52 | PM.IMPN ---
Progress Note: A&P Assessment and Plan (1) Acute respiratory failure: Code(s): J96.00 - Acute respiratory failure, unspecified whether with hypoxia or hypercapnia Status: Acute Assessment and Plan: on the basis of congestive heart failure and pneumonia. Cultured and placed on antibiotics and given IV diuresis. Continue to follow. repeat echo if cardiology thinks necessary (2) Cardiopulmonary arrest with successful resuscitation: Code(s): I46.9 - Cardiac arrest, cause unspecified Status: Acute Assessment and Plan: primarily respiratory arrest. ICD did not fire. 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 Continue diuretic and woudl add [place]-inhibitor and beta silke with his bp . per intensivists and cardiology (4) Pneumonia: Qualifiers: Laterality: right Lung location: lower lobe of lung Pneumonia type: due to unspecified organism Qualified Code(s): J18.9 - Pneumonia, unspecified organism Code(s): J18.9 - Pneumonia, unspecified organism Status: Acute Assessment and Plan: COVID test pending but probable all heart failure and/or additional community-acquired pneumonia. Cultured and placed on vancomycin and Zosyn (5) Type 2 diabetes mellitus without complications: Qualifiers: Diabetes mellitus fci insulin use: without fci use Qualified Code(s): E11.9 - Type 2 diabetes mellitus without complications Code(s): E11.9 - Type 2 diabetes mellitus without complications Status: Acute Assessment and Plan: sliding scale and check an A1c FBS 231 (6) Obstructive sleep apnea (adult) (pediatric): Code(s): G47.33 - Obstructive sleep apnea (adult) (pediatric) Status: Acute Assessment and Plan: CPAP once extubated (7) Essential (primary) hypertension: Code(s): I10 - Essential (primary) hypertension Status: Acute Assessment and Plan: on hold per consultants at present time (8) Paroxysmal atrial fibrillation: Code(s): I48.0 - Paroxysmal atrial fibrillation Status: Acute Assessment and Plan: ventricular paced rhythm with history of underlying AFib. Continue anticoagulation (9) Elevated troponin: Code(s): R79.89 - Other specified abnormal findings of blood chemistry Status: Acute Assessment and Plan: probable secondary to heart failure and respiratory arrest and no acute coronary syndrome. as above coronaries were normal at catheterization in 2009 (10) DVT prophylaxis: Code(s): Z29.9 - Encounter for prophylactic measures, unspecified Status: Acute Assessment and Plan: Eliquis Subjective Date/time seen: 05/31/19 15:52 Interval history: Date of visit 05/30. 64-year-old diabetic history of congestive heart failure admitted with pneumonia respiratory arrest which precipitated cardiopulmonary arrest in the ER. ROSC in 10 minutes and patient on mechanical ventilation at present time. AICD apparently did not fire and verified by interrogation that it did not. Exam Narrative: Exam Narrative: Blood pressure 156/80 pulse is 70 saturated 92% on FiO2 of 100% with PEEP of 8 afebrile Pupils equally reactive sluggish Lungs hear no definite wheezing or rales CV regular rate rhythm no murmurs Abdomen is soft nontender no masses Extremities without edema hematoma below left knee with ecchymosis extending down to the foot dorsalis pedis posterior tibial 2+ left 1+ right Mignon
[2019-05-31 17:54] LABS: Glucose Point of Care 183 (65-105)
[2019-06-01] VITALS (38 sets, daily range): BP systolic 133–192; BP diastolic 72–96; PULSE 14–113; RESP 14–16; TEMP 37.1–37.9; O2SAT 93–99
[2019-06-01] MEDS: LABETALOL HCL INJ 100 MG/20 ML VIAL 10 MG IV PUSH (00:28)
[2019-06-01 00:40] LABS: Glucose Point of Care 221 (65-105)
[2019-06-01] MEDS: ALBUTEROL SULFATE NEB 2.5 MG/0.5 ML INH 5 MG INHALATION ×4 (01:12→21:10)
[2019-06-01] MEDS: IPRATROPIUM BR 0.02% INH SOLN 0.5 MG/2.5 ML VIAL INHALATION ×4 (01:12→21:10)
[2019-06-01] MEDS: INSULIN ASPART (*BKC) 100 UNITS/ML SUB-Q ×4 (02:48→17:15)
[2019-06-01 05:30] LABS: Alveolar/Arterial O2 Gradient 202.4 mmHg; Base Excess ABG 2.7 mEq/l (+/-2.0); Carboxyhemoglobin 0.4 % THb (0-2.0); Fractional Inspired Oxygen 50 %; HCO3 ABG 28.3 mEq/l (22.0-26.0); Methemoglobin ABG 0.4 %THb (0-1.5); Oxygen Content ABG 19.1 %vol (16.0-22.0); Oxygen Saturation ABG 97.6 % (95.0-100.0); Oxyhemoglobin 96.3 % THb (90.0-100.0); PO2 ABG 101.2 mmHg (80.0-100.0); PO2 FiO2 Ratio Arterial Blood 2.02 %; Reduced Hemoglobin 2.9 %THb (0-5.0); pH ABG 7.397 (7.350-7.450)
[2019-06-01 05:31] LABS: Device VENTILATOR; Modified Allen's Test Pass; Site Drawn RIGHT RADIAL
[2019-06-01 05:32] LABS: Arterial Blood Gas PEEP 10 cmH2O; Arterial Blood Gas Tidal Volume 500 ml; Arterial Blood Gas Vent Mode CMV; Arterial Blood Gas Ventilator rate 14 /MIN
[2019-06-01 06:35] LABS: Hematocrit 36.4 % (42.0-52.0); Hemoglobin 11.5 g/dL (14.0-18.0); Mean Corpuscular HGB Conc 31.6 g/dl (32-36); Mean Corpuscular Hemoglobin 28.5 pg (26-34); Mean Corpuscular Volume 90.1 fl (80-100); Mean Platelet Volume 10.2 fl (7.4-10.4); Platelet Count Result 196 k/mm3 (150-375); Red Blood Count 4.04 M/mm3 (4.6-6.20)
[2019-06-01 06:44] LABS: Hemoglobin A1C 6.9 % (<5.7)
[2019-06-01 06:50] LABS: Blood Urea Nitrogen 28 mg/dL (9-20); Calcium 8.7 mg/dL (8.4-10.2); Carbon Dioxide 31 mmol/L (22-30); Chloride 102 mmol/L (98-107); Estimated CRCL calculation 131 ml/min; Estimated Glomerular Filt Rate > 60; Glucose 239 mg/dL (75-110); Magnesium 2.3 mg/dL (1.6-2.3); Phosphorus 3.6 mg/dL (2.5-4.5); Sodium 139 mmol/L (137-145)
--- NOTE | 2019-06-01 08:46 | WPDINTPN ---
Progress Note: A&P Assessment and Plan (1) UTI due to Klebsiella species: Code(s): N39.0 - Urinary tract infection, site not specified; B96.89 - Other specified bacterial agents as the cause of diseases classified elsewhere Status: Acute Assessment and Plan: urine cultures growing Klebsiella, duggan susceptible. Will switch Zosyn to ceftriaxone (2) Acute respiratory failure: Code(s): J96.00 - Acute respiratory failure, unspecified whether with hypoxia or hypercapnia Status: Acute Assessment and Plan: patient presented with acute respiratory failure requiring intubation - currently on mechanical ventilation, CMV mode, 10 of PEEP,100% FiO2. - chest x-ray and ABGs reviewed - continue albuterol and Spiriva MDI - continue fentanyl Versed infusion for sedation and ventilator synchrony, daily sedation vacation (3) Cardiopulmonary arrest with successful resuscitation: Code(s): I46.9 - Cardiac arrest, cause unspecified Status: Acute Assessment and Plan: patient with cardiac arrest, ROSC within 10 minutes. Mainly a respiratory per ED physician - continue full mechanical ventilation, ventilator adjusted after reviewing this chest x-ray and ABGs - continue diuresis - continue vanc and Zosyn - SARs-COV-2 PCR has been sent - leukocytosis with normal lymphocytes, normal ferritin, elevated LDH, mildly elevated CRP. Calcitonin pending, D-dimer elevated - patient did have some jerky movements, his AICD was interrogated, no shocks were recorded. (4) CHF (congestive heart failure): Qualifiers: Heart failure chronicity: unspecified Heart failure type: unspecified Qualified Code(s): I50.9 - Heart failure, unspecified Code(s): I50.9 - Heart failure, unspecified Status: Acute Assessment and Plan: patient with history of heart failure, AICD, dual chamber, interrogated this morning,no shocks were noted, patient was in AFib Earlier on the day of admission. - echocardiogram ordered and pending report - continue diuresis and mechanical ventilation - appreciate Cardiology evaluation and recommendation (5) Pneumonia: Qualifiers: Laterality: right Lung location: lower lobe of lung Pneumonia type: due to unspecified organism Qualified Code(s): J18.9 - Pneumonia, unspecified organism Code(s): J18.9 - Pneumonia, unspecified organism Status: Acute Assessment and Plan: CT scan showed right-sided pneumonia, given patient's condition, continue vancomycin and Zosyn - cultures have been obtained - lactic acid normalized - blood cultures negative x2 so far, will discontinue vancomycin once sputum cultures are resulted - Sputum cultures ordered (6) Type 2 diabetes mellitus without complications: Qualifiers: Diabetes mellitus mcfp insulin use: without intermediate project manager use Qualified Code(s): E11.9 - Type 2 diabetes mellitus without complications Code(s): E11.9 - Type 2 diabetes mellitus without complications Status: Acute Assessment and Plan: sliding scale insulin and Accu-Cheks (7) Mixed hyperlipidemia: Code(s): E78.2 - Mixed hyperlipidemia Status: Acute Assessment and Plan: continue statin (8) Paroxysmal atrial fibrillation: Code(s): I48.0 - Paroxysmal atrial fibrillation Status: Acute Assessment and Plan: history of proximal AFib, currently in sinus rhythm rate control, will continue to monitor. Patient on Eliquis at home, will continue (9) DVT prophylaxis: Code(s): Z29.9 - Encounter for prophylactic measures, unspecified Status: Acute Assessment and Plan: DVT prophylaxis: Eliquis Stress ulcer prophylaxis: Protonix (10) Hematoma of left lower extremity: Code(s): S80.12XA - Contusion of left lower leg, initial encounter Status: Acute Assessment and Plan: hematoma of the left lower extremity, donavan
--- NOTE | 2019-06-01 08:47 | PM.PNCARD ---
Progress Note: A&P Assessment and Plan (1) Acute respiratory failure: Code(s): J96.00 - Acute respiratory failure, unspecified whether with hypoxia or hypercapnia Status: Acute Assessment and Plan: Fairly acute development of respiratory distress at home, with rapid decompensation in ER and subsequent arrest, intubation. Appears to have pneumonia and CHF as well. High O2 requirement though reduced from yesterday.. No recent known COVID exposure, has been staying at home; COVID screen pending. (2) Cardiopulmonary arrest with successful resuscitation: Code(s): I46.9 - Cardiac arrest, cause unspecified Status: Acute Assessment and Plan: Mostly pulmonary arrest, no arrhythmias by ICD interogation. Probably anoxic encephalopathy; not waking up. Myoclonus suppressed w/ IV Keppra. Sedated. (3) Pneumonia: Qualifiers: Laterality: right Lung location: lower lobe of lung Pneumonia type: due to unspecified organism Qualified Code(s): J18.9 - Pneumonia, unspecified organism Code(s): J18.9 - Pneumonia, unspecified organism Status: Acute Assessment and Plan: Aspiration PNA vs COVID. Low grade temp. High O2 needs. Tx per Critical Care team; on vanco and Zosyn (4) CHF (congestive heart failure): Qualifiers: Heart failure chronicity: unspecified Heart failure type: unspecified Qualified Code(s): I50.9 - Heart failure, unspecified Code(s): I50.9 - Heart failure, unspecified Status: Acute Assessment and Plan: Personally reivewed CXR, has small effusions and some degree of CHF, agree w/ IV diuresis which is ordered thru today. REassess tmr and perhaps cont diuretic tx. Resume lisinopril for CHF and HTN Will request records fro [facility] for most recent Echo etc. (5) Essential (primary) hypertension: Code(s): I10 - Essential (primary) hypertension Status: Acute Assessment and Plan: REsume low dose lisinopril; resume low dose carvedilol soon as well. (6) Elevated troponin: Code(s): R79.89 - Other specified abnormal findings of blood chemistry Status: Acute Assessment and Plan: Probably Type 2 DC. No known CAD. BP stable but high at times. (7) Paroxysmal atrial fibrillation: Code(s): I48.0 - Paroxysmal atrial fibrillation Status: Acute Assessment and Plan: None noted this admission. On Eliquis. Subjective Date/time seen: 06/01/19 08:47 Interval history: 64-year-old man w h/o nonischemic cardiomyopathy with h/o improvement of left vetnricular function, paroxysmal atrial fib implantable [employer] ICD followed at [facility]. He had acute respiratory failure and respiratory arrest, requiring intubation and placement on mechanical ventilator 05/30/2019. Elevated troponins but no h/o CAD. Being evaluated for pneumonia 2nd to possible Chavez virus and/or aspiration. FU of cardiomyopathy and CHF. 05/31/2019 Visit: Not waking up but sedated. Some myoclonic jerks noted yesterday, now on IV Keppra. Remains on ventilator, requiring FiO2 80%. Sedated, getting IV vancomycin. Modest diuresis of -300 ccs on Lasix 40mg IVP BID. TRoponin up to 2.5. EKG yesterday showed ventricular pacing. COVID screen pending. DATE OF SERVICE 06/01/2019: Remains on vent, FiO2 down to 50%, sedated with small doses Versed and fentanyl, no purposeful movement. On IV antibiotics, IV Keppra for myoclonus. Had significantly elevated BP last night and given labetlol X1. Diuresed 1300 cc/s yesterday. Review of Systems Review of Systems: ROS unobtainable: Yes unobtainable due to endotracheal tube, unobtainable due to medical condition, unobtainable due to mental status and other (ROS obtained from pt's nurse and the chart.) Constitutional: Const
[2019-06-01] MEDS: FUROSEMIDE INJ 40 MG/4 ML VIAL IV PUSH ×2 (09:41→16:03)
[2019-06-01] MEDS: PANTOPRAZOLE SODIUM IV 40 MG VIAL IV PUSH (09:42)
[2019-06-01] MEDS: SIMVASTATIN 20 MG TABLET PO (09:43)
[2019-06-01] MEDS: APIXABAN 5 MG TABLET PO ×2 (09:43→16:03)
[2019-06-01] MEDS: levETIRAcetam 500MG/NACL 100ML 500 MG/100 ML BAG 400 MG IVPB ×2 (09:44→21:27)
[2019-06-01] MEDS: carvediloL 3.125 MG TABLET PO ×2 (09:57→21:28)
[2019-06-01 10:37] LABS: Lactic Acid 1.3 mmol/L (0.7-2.1)
[2019-06-01 11:17] LABS: Procalcitonin 0.37 ng/mL (<0.10)
[2019-06-01 11:18] LABS: Glucose Point of Care 229 (65-105)
--- NOTE | 2019-06-01 16:05 | PM.IMPN ---
Progress Note: A&P Assessment and Plan (1) Acute respiratory failure: Code(s): J96.00 - Acute respiratory failure, unspecified whether with hypoxia or hypercapnia Status: Acute Assessment and Plan: on the basis of congestive heart failure and pneumonia. Cultured and placed on antibiotics and given IV diuresis. Continue to follow. repeat echo if cardiology thinks necessary (2) Cardiopulmonary arrest with successful resuscitation: Code(s): I46.9 - Cardiac arrest, cause unspecified Status: Acute Assessment and Plan: primarily respiratory arrest. ICD did not fire. 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 Continue diuretic and NJ-inhibitor and beta silke restarted at low dose with his bp . per intensivists and cardiology (4) Pneumonia: Qualifiers: Laterality: right Lung location: lower lobe of lung Pneumonia type: due to unspecified organism Qualified Code(s): J18.9 - Pneumonia, unspecified organism Code(s): J18.9 - Pneumonia, unspecified organism Status: Acute Assessment and Plan: COVID test pending but probable all heart failure and/or additional community-acquired pneumonia. Cultured and placed on vancomycin and Zosyn(changed to ceftriaxone) (5) Type 2 diabetes mellitus without complications: Qualifiers: Diabetes mellitus emt intermediate insulin use: without assisted use Qualified Code(s): E11.9 - Type 2 diabetes mellitus without complications Code(s): E11.9 - Type 2 diabetes mellitus without complications Status: Acute Assessment and Plan: sliding scale and A1c 6.9 FBS 239 (6) Obstructive sleep apnea (adult) (pediatric): Code(s): G47.33 - Obstructive sleep apnea (adult) (pediatric) Status: Acute Assessment and Plan: CPAP once extubated (7) Essential (primary) hypertension: Code(s): I10 - Essential (primary) hypertension Status: Acute Assessment and Plan: on hold per consultants at present time (8) Paroxysmal atrial fibrillation: Code(s): I48.0 - Paroxysmal atrial fibrillation Status: Acute Assessment and Plan: ventricular paced rhythm with history of underlying AFib. Continue anticoagulation (9) Elevated troponin: Code(s): R79.89 - Other specified abnormal findings of blood chemistry Status: Acute Assessment and Plan: probable secondary to heart failure and respiratory arrest and no acute coronary syndrome. as above coronaries were normal at catheterization in 2009 (10) DVT prophylaxis: Code(s): Z29.9 - Encounter for prophylactic measures, unspecified Status: Acute Assessment and Plan: Eliquis (11) UTI due to Klebsiella species: Code(s): N39.0 - Urinary tract infection, site not specified; B96.89 - Other specified bacterial agents as the cause of diseases classified elsewhere Status: Acute Assessment and Plan: pansensitive other than ampicillin. ceftriaxone started Subjective Date/time seen: 06/01/19 16:05 Interval history: Date of visit 05/31. 64-year-old diabetic history of congestive heart failure admitted with pneumonia, respiratory arrest which precipitated cardiopulmonary arrest in the ER. ROSC in 10 minutes and patient on mechanical ventilation at present time. AICD did not fire and verified by interrogation that it did not. Exam Narrative: Exam Narrative: Blood pressure 150/90 pulse is 74 saturated 100% on FiO2 o
[2019-06-01] MEDS: MIDAZOLAM HCL 50 MG in DEXTROSE 5% 90 ML IV CONT (17:25)
[2019-06-01 19:18] LABS: Glucose Point of Care 251 (65-105)
[2019-06-02] VITALS (28 sets, daily range): BP systolic 110–166; BP diastolic 65–99; PULSE 62–100; RESP 14–20; TEMP 37.1–37.4; O2SAT 93–96
[2019-06-02] MEDS: INSULIN ASPART (*BKC) 100 UNITS/ML SUB-Q ×2 (00:08→19:29)
[2019-06-02 01:23] LABS: Glucose Point of Care 260 (65-105)
[2019-06-02] MEDS: ALBUTEROL SULFATE NEB 2.5 MG/0.5 ML INH 5 MG INHALATION ×4 (02:20→21:19)
[2019-06-02] MEDS: IPRATROPIUM BR 0.02% INH SOLN 0.5 MG/2.5 ML VIAL INHALATION ×4 (02:20→21:19)
[2019-06-02 04:13] LABS: Mean Corpuscular Hemoglobin 28.3 pg (26-34); Mean Corpuscular Volume 91.3 fl (80-100); Mean Platelet Volume 9.9 fl (7.4-10.4); Platelet Count Result 219 k/mm3 (150-375); Red Cell Distribution Width 14.7 % (11.5-14.5)
[2019-06-02 04:19] LABS: Blood Urea Nitrogen 29 mg/dL (9-20); Calcium 9.5 mg/dL (8.4-10.2); Carbon Dioxide 35 mmol/L (22-30); Chloride 100 mmol/L (98-107); Estimated CRCL calculation 131 ml/min; Estimated Glomerular Filt Rate > 60; Glucose 254 mg/dL (75-110); Magnesium 2.8 mg/dL (1.6-2.3); Potassium 3.8 mmol/L (3.4-5.0); Sodium 141 mmol/L (137-145)
[2019-06-02 05:22] LABS: Alveolar/Arterial O2 Gradient 84.8 mmHg; Base Excess ABG 4.4 mEq/l (+/-2.0); Carboxyhemoglobin 0.8 % THb (0-2.0); Fractional Inspired Oxygen 30 %; HCO3 ABG 29.6 mEq/l (22.0-26.0); Methemoglobin ABG 0.3 %THb (0-1.5); Oxygen Content ABG 18.8 %vol (16.0-22.0); Oxygen Saturation ABG 95.2 % (95.0-100.0); Oxyhemoglobin 93.3 % THb (90.0-100.0); PCO2 ABG 46.4 mmHg (35.0-45.0); PO2 ABG 74.6 mmHg (80.0-100.0); PO2 FiO2 Ratio Arterial Blood 2.49 %; Reduced Hemoglobin 5.6 %THb (0-5.0); Total Hemoglobin 14.3 g/dL (12.0-18.0); pH ABG 7.423 (7.350-7.450)
[2019-06-02 05:23] LABS: Device VENTILATOR; Modified Allen's Test Pass; Site Drawn RIGHT RADIAL
[2019-06-02 05:24] LABS: Arterial Blood Gas PEEP 10 cmH2O; Arterial Blood Gas Pressure Support 0 cmH2O; Arterial Blood Gas Tidal Volume 500 ml; Arterial Blood Gas Vent Mode CMV; Arterial Blood Gas Ventilator rate 14 /MIN
[2019-06-02 06:27] LABS: Glucose Point of Care 192 (65-105)
[2019-06-02 09:09] LABS: Glucose Point of Care 286 (65-105)
--- NOTE | 2019-06-02 09:23 | PM.PNCARD ---
Progress Note: A&P Additional Plan Will Advance Lisinopril to 10 Mg Cont Coreg and Return to baseline dose of 25 Q 12 as tolerated Await COVID 19 results Fantasma Herrera MD [facility] Subjective Date/time seen: Date of service: 06/02/19 09:23 Interval history: Follow-up visit in 64-year-old gentleman with acute respiratory failure necessitating emergency intubation and mechanical ventilator support the end of last week. Respiratory status is improving significantly , potential plans to attempt extubation later today. 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 COVID 19 results are pending Exam Const: Other: Sedated WM on ventilator support Eyes: Sclera: sclerae normal Pupils: Equal, round and reactive pupils present Neck: Neck: supple and no JVD Thyroid: thyroid normal Resp: Other: Scattered rhonchi Cardio: Rate: regular rate Rhythm: regular rhythm Other: NSR with A sensing and V pacing GI: Auscultation: normal bowel sounds Extrem: General: normal to inspection Objective Data Vital Signs Vital Signs: Vital Signs - 24 hr 06/01/19 09:57 06/01/19 10:00 06/01/19 10:17 Temperature Pulse Rate 74 77 76 Respiratory Rate 14 Blood Pressure 137/76 Pulse Oximetry 99 97 06/01/19 12:00 06/01/19 12:10 06/01/19 14:00 Temperature 37.2 C Pulse Rate 81 70 67 Respiratory Rate 14 14 Blood Pressure 167/93 H 135/83 Pulse Oximetry 97 96 97 06/01/19 14:12 06/01/19 14:16 06/01/19 14:20 Temperature Pulse Rate 86 83 75 Respiratory Rate 14 14 Blood Pressure Pulse Oximetry 96 06/01/19 14:45 06/01/19 15:49 06/01/19 16:00 Temperature 37.2 C Pulse Rate 96 14 L 95 Respiratory Rate 14 Blood Pressure 151/90 H Pulse Oximetry 94 96 06/01/19 17:20 06/01/19 18:00 06/01/19 20:00 Temperature 37.3 C Pulse Rate 86 91 73 Respiratory Rate 14 14 Blood Pressure 161/86 H 154/84 H Pulse Oximetry 94 93 95 06/01/19 20:40 06/01/19 21:11 06/01/19 21:21 Temperature Pulse Rate 80 80 79 Respiratory Rate 14 14 Blood Pressure Pulse Oximetry 95 06/01/19 21:28 06/01/19 22:00 06/01/19 23:40 Temperature Pulse Rate 83 83 85 Respiratory Rate 16 Blood Pressure 165/84 H Pulse Oximetry 95 95 06/02/19 00:00 06/02/19 02:00 06/02/19 02:10 Temperature 37.1 C Pulse Rate 71 79 90 Respiratory Rate 14 14 Blood Pressure 149/71 H 133/77 Pulse Oximetry 95 96 95 06/02/19 02:21 06/02/19 02:30 06/02/19 04:00 Temperature 37.2 C Pulse Rate 78 79 93 Respiratory Rate 14 14 14 Blood Pressure 152/84 H Pulse Oximetry 93 06/02/19 05:15 06/02/19 06:00 Temperature Pulse Rate 84 66 Respiratory Rate 14 Blood Pressure 125/76 Pulse Oximetry 95 94 Intake/Output Intake/Output: Intake & Output 05/30/19 05/31/19 06/01/19 06/02/19 23:59 23:59 23:59 23:59 Intake Total 989 1948 2280 774 Output Total 1350 3450 3150 1700 [id number] -361 -1502 -870 -926 Meds/Results Medications: Active Medications Generic Name Dose Route Start Last Admin Trade Name Freq PRN Reason Stop Dose Admin Albuterol 2 puff 05/30/19 12:00 05/31/19 11:49 Proventil Hfa INHALATION Not Given QIDRT DAVID Albuterol 5 mg 05/30/19 20:00 06/02/19 02:20 Albuterol Sulf Neb 2.5mg/0.5ml INHALATION 5 mg Q6HRT DAVID Administration Apixaban 5 mg 05/30/19 17:00 06/01/19 16:03 Eliquis PO 5 mg BID DAVID Administration Carvedilol 3.125 mg 06/01/19 09:30 06/01/19 21:28 Coreg PO 3.125 mg Q12HR DAVID Administration Dextrose 12.5 gm 05/30/19 12:18 Dextrose 50% Syringe IV PUSH PRN PRN Hypoglycemia Protocol Furosemide 40 mg 06/01/19 09:00 06/01/19 16:03 Lasix Inj IV PUSH 06/02/19 17:01 40 mg BID DAVID Administration Glucagon 1 mg 05/30/19 12:18 Glucagon For Inj IM PRN P
[2019-06-02] MEDS: APIXABAN 5 MG TABLET PO ×2 (09:43→18:50)
[2019-06-02] MEDS: carvediloL 3.125 MG TABLET PO ×2 (09:43→21:46)
[2019-06-02] MEDS: FUROSEMIDE INJ 40 MG/4 ML VIAL IV PUSH ×2 (09:44→18:50)
[2019-06-02] MEDS: lisinopriL 10 MG TABLET PO (09:45)
[2019-06-02] MEDS: SIMVASTATIN 20 MG TABLET PO (09:45)
[2019-06-02] MEDS: PANTOPRAZOLE SODIUM IV 40 MG VIAL IV PUSH (09:45)
[2019-06-02] MEDS: INSULIN DETEMIR 100 UNITS/ML SUB-Q ×2 (10:00→21:46)
--- NOTE | 2019-06-02 10:54 | PCDIET ---
Nutrition Follow-Up Complete: Nutrition Diagnosis: Inadequate oral intake related to oral intubation as evidenced by NPO status. Nutrition Goal: Patient to meet estimated nutritional needs. Goal in progress. Patient previously tolerating Glucerna 1.2 tube feedings at 60mL/hr. Tube feedings to be held for attempted extubation today. Last recorded weight is 124.6 kg which is decreased from last review. -I/O noted. Bowel Motility: No documented bowel movement as of yet. Labs Reviewed: Glu (254), BUN (29), HgbA1C (6.9) Meds Noted: Albuterol, Rocephin, Precedex, Fentanyl, Lasix, Novolog, Levemir, Vancomycin, Atrovent, Keppra, Versed, Protonix Additional Notes: No documented skin breakdown. Recommend resuming tube feedings if unable to extubate today. Nutrition Monitoring and Evaluation: Follow up every Sunday/Sunday. Follow daily in ICU rounds.
[2019-06-02 14:36] LABS: Glucose Point of Care 265 (65-105)
[2019-06-02] MEDS: levETIRAcetam 500MG/NACL 100ML 500 MG/100 ML BAG 400 MG IVPB ×2 (16:47→21:47)
--- NOTE | 2019-06-02 16:54 | PM.IMPN ---
Progress Note: A&P Assessment and Plan (1) Acute respiratory failure: Code(s): J96.00 - Acute respiratory failure, unspecified whether with hypoxia or hypercapnia Status: Acute Assessment and Plan: on the basis of congestive heart failure and pneumonia. Cultured and placed on antibiotics and given IV diuresis. Continue to follow. repeat echo if cardiology thinks necessary possible extubate soon by ball ender (2) Cardiopulmonary arrest with successful resuscitation: Code(s): I46.9 - Cardiac arrest, cause unspecified Status: Acute Assessment and Plan: primarily respiratory arrest. ICD did not fire. 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 Continue diuretic and NJ-inhibitor and beta silke restarted at low dose with his bp . per intensivists and cardiology (4) Pneumonia: Qualifiers: Laterality: right Lung location: lower lobe of lung Pneumonia type: due to unspecified organism Qualified Code(s): J18.9 - Pneumonia, unspecified organism Code(s): J18.9 - Pneumonia, unspecified organism Status: Acute Assessment and Plan: COVID returned negative today and probable all heart failure and/or additional community-acquired pneumonia. 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 insulin use: without marine oil terminal superintendent use Qualified Code(s): E11.9 - Type 2 diabetes mellitus without complications Code(s): E11.9 - Type 2 diabetes mellitus without complications Status: Acute Assessment and Plan: sliding scale and A1c 6.9 FBS 254 (6) Obstructive sleep apnea (adult) (pediatric): Code(s): G47.33 - Obstructive sleep apnea (adult) (pediatric) Status: Acute Assessment and Plan: CPAP once extubated (7) Essential (primary) hypertension: Code(s): I10 - Essential (primary) hypertension Status: Acute Assessment and Plan: restarted at lesser dose 4/12 and will need titrated back up (8) Paroxysmal atrial fibrillation: Code(s): I48.0 - Paroxysmal atrial fibrillation Status: Acute Assessment and Plan: ventricular paced rhythm with history of underlying AFib. Continue anticoagulation (9) Elevated troponin: Code(s): R79.89 - Other specified abnormal findings of blood chemistry Status: Acute Assessment and Plan: probable secondary to heart failure and respiratory arrest and no acute coronary syndrome. as above coronaries were normal at catheterization in 2009 (10) DVT prophylaxis: Code(s): Z29.9 - Encounter for prophylactic measures, unspecified Status: Acute Assessment and Plan: Eliquis (11) UTI due to Klebsiella species: Code(s): N39.0 - Urinary tract infection, site not specified; B96.89 - Other specified bacterial agents as the cause of diseases classified elsewhere Status: Acute Assessment and Plan: pansensitive other than ampicillin. ceftriaxone started 05/31 Subjective Date/time seen: 06/02/19 16:54 Interval history: Date of visit 06/01. 64-year-old diabetic history of congestive heart failure admitted with pneumonia, respiratory arrest which precipitated cardiopulmonary arrest in the ER. ROSC in 10 minutes and patient on mechanical ventilation at present time. AICD did not fire and verified by interrogation that it did not. Exam Narrative:
[2019-06-02 18:57] LABS: Glucose Point of Care 272 (65-105)
--- NOTE | 2019-06-02 22:11 | ECG_ITS ---
Measurements Intervals [place] Rate: 92 P: NC: 0 QRS: -64 QRSD: 154 T: 135 QT: 410 QTc: 508 Interpretive Statements ATRIAL FIBRILLATION IVCD, FEATURES OF BOTH LBBB, RBBB BASELINE ARTIFACT- I, II, AVR, AVL, AVF ABNORMAL ECG Electronically Signed On 06-03-2019 8:17:43 CDT by Lang Trevino D.O.
--- NOTE | 2019-06-02 22:25 | PC.NURSE ---
Dr. Carolina notified of temproary AFIB RVR in the 150's. Currently now controlled AFIB 70 to 100. No further orders at this time. If patient were to go back into AFIB RVR and sustain, start Cardizem drip per protocol if blood pressures are stable.
[2019-06-03] VITALS (29 sets, daily range): BP systolic 124–167; BP diastolic 66–98; PULSE 74–106; RESP 14–27; TEMP 37.2–38; O2SAT 93–97
[2019-06-03] MEDS: INSULIN ASPART (*BKC) 100 UNITS/ML SUB-Q ×4 (00:40→18:18)
[2019-06-03 01:25] LABS: Glucose Point of Care 272 (65-105)
[2019-06-03] MEDS: IPRATROPIUM BR 0.02% INH SOLN 0.5 MG/2.5 ML VIAL INHALATION ×3 (02:15→14:21)
[2019-06-03] MEDS: ALBUTEROL SULFATE NEB 2.5 MG/0.5 ML INH 5 MG INHALATION ×3 (02:15→14:21)
[2019-06-03 04:33] LABS: Hematocrit 45.8 % (42.0-52.0); Hemoglobin 14.2 g/dL (14.0-18.0); Mean Corpuscular Hemoglobin 28.3 pg (26-34); Mean Corpuscular Volume 91.4 fl (80-100); Mean Platelet Volume 10.1 fl (7.4-10.4); Platelet Count Result 264 k/mm3 (150-375); Red Blood Count 5.01 M/mm3 (4.6-6.20); Red Cell Distribution Width 14.7 % (11.5-14.5); White Blood Count 18.5 K/mm3 (4.5-10.0)
[2019-06-03 04:53] LABS: Blood Urea Nitrogen 36 mg/dL (9-20); Calcium 9.4 mg/dL (8.4-10.2); Carbon Dioxide 38 mmol/L (22-30); Chloride 102 mmol/L (98-107); Estimated CRCL calculation 113 ml/min; Estimated Glomerular Filt Rate > 60; Glucose 296 mg/dL (75-110); Magnesium 2.9 mg/dL (1.6-2.3); Phosphorus 4.3 mg/dL (2.5-4.5); Potassium 3.8 mmol/L (3.4-5.0); Sodium 145 mmol/L (137-145)
[2019-06-03 05:02] LABS: Alveolar/Arterial O2 Gradient 50.9 mmHg; Base Excess ABG 10.1 mEq/l (+/-2.0); Carboxyhemoglobin 0.6 % THb (0-2.0); Fractional Inspired Oxygen 30 %; HCO3 ABG 35.1 mEq/l (22.0-26.0); Methemoglobin ABG 0.3 %THb (0-1.5); Oxygen Content ABG 20.2 %vol (16.0-22.0); Oxygen Saturation ABG 98.2 % (95.0-100.0); Oxyhemoglobin 96.7 % THb (90.0-100.0); PCO2 ABG 47.5 mmHg (35.0-45.0); PO2 ABG 107.2 mmHg (80.0-100.0); PO2 FiO2 Ratio Arterial Blood 3.57 %; Reduced Hemoglobin 2.4 %THb (0-5.0); Total Hemoglobin 14.8 g/dL (12.0-18.0); pH ABG 7.486 (7.350-7.450)
[2019-06-03 05:03] LABS: Arterial Blood Gas PEEP 10 cmH2O; Arterial Blood Gas Vent Mode CMV; Arterial Blood Gas Ventilator rate 14 /MIN; Device VENTILATOR; Modified Allen's Test Pass; Site Drawn RIGHT BRACHIAL
[2019-06-03 05:04] LABS: Arterial Blood Gas Pressure Support 0 cmH2O; Arterial Blood Gas Tidal Volume 500 ml
[2019-06-03 06:04] LABS: Glucose Point of Care 295 (65-105)
[2019-06-03] MEDS: carvediloL 6.25 MG TABLET PO ×2 (09:43→21:07)
[2019-06-03] MEDS: APIXABAN 5 MG TABLET PO ×2 (09:44→18:18)
[2019-06-03] MEDS: SIMVASTATIN 20 MG TABLET PO (09:44)
[2019-06-03] MEDS: PANTOPRAZOLE SODIUM IV 40 MG VIAL IV PUSH (09:44)
[2019-06-03] MEDS: lisinopriL 10 MG TABLET PO (09:44)
[2019-06-03] MEDS: levETIRAcetam 500MG/NACL 100ML 500 MG/100 ML BAG 400 MG IVPB (09:46)
[2019-06-03] MEDS: INSULIN DETEMIR 100 UNITS/ML 15 UNITS SUB-Q ×2 (09:54→21:08)
--- NOTE | 2019-06-03 10:53 | WPDNEUROPN ---
Objective Data Vital Signs Vital Signs: Vital Signs - 24 hr 06/02/19 11:24 06/02/19 12:00 06/02/19 14:00 Temperature 37.4 C Pulse Rate 64 64 79 Respiratory Rate 14 14 Blood Pressure 110/65 150/75 H Pulse Oximetry 93 93 94 06/02/19 15:14 06/02/19 15:15 06/02/19 15:31 Temperature Pulse Rate 71 73 75 Respiratory Rate 14 17 Blood Pressure Pulse Oximetry 94 06/02/19 16:00 06/02/19 18:00 06/02/19 20:00 Temperature 37.2 C Pulse Rate 82 98 87 Respiratory Rate 15 16 15 Blood Pressure 160/76 H 161/99 H 166/73 H Pulse Oximetry 94 93 93 06/02/19 21:20 06/02/19 21:31 06/02/19 21:46 Temperature Pulse Rate 92 96 85 Respiratory Rate 15 15 Blood Pressure Pulse Oximetry 06/02/19 22:00 06/02/19 23:10 06/03/19 00:00 Temperature 37.2 C Pulse Rate 91 94 99 Respiratory Rate 20 18 Blood Pressure 146/85 H 167/82 H Pulse Oximetry 94 94 94 06/03/19 02:00 06/03/19 02:15 06/03/19 02:17 Temperature Pulse Rate 85 87 98 Respiratory Rate 22 H 14 Blood Pressure 134/80 Pulse Oximetry 94 94 06/03/19 02:21 06/03/19 04:00 06/03/19 05:06 Temperature Pulse Rate 92 97 90 Respiratory Rate 14 22 H Blood Pressure 136/75 Pulse Oximetry 94 97 06/03/19 06:00 06/03/19 08:00 06/03/19 08:41 Temperature 37.5 C Pulse Rate 83 86 93 Respiratory Rate 16 16 14 Blood Pressure 167/83 H 135/66 Pulse Oximetry 95 95 06/03/19 08:43 06/03/19 09:43 Temperature Pulse Rate 84 86 Respiratory Rate Blood Pressure Pulse Oximetry 96 Intake/Output Intake/Output: Intake & Output 05/31/19 06/01/19 06/02/19 06/03/19 23:59 23:59 23:59 23:59 Intake Total 6006 6930 0933 643 Output Total 2472 3550 7607 1900 [facility] -1502 -870 -2257 -1257 Meds/Results Medications: Active Medications Generic Name Dose Route Start Last Admin Trade Name Freq PRN Reason Stop Dose Admin Albuterol 2 puff 05/30/19 12:00 05/31/19 11:49 Proventil Hfa INHALATION Not Given QIDRT DAVID Albuterol 5 mg 05/30/19 20:00 06/03/19 08:41 Albuterol Sulf Neb 2.5mg/0.5ml INHALATION 5 mg Q6HRT DAVID Administration Apixaban 5 mg 05/30/19 17:00 06/03/19 09:44 Eliquis PO 5 mg BID DAVID Administration Carvedilol 6.25 mg 06/03/19 09:00 06/03/19 09:43 Coreg PO 6.25 mg Q12HR DAVID Administration Dextrose 12.5 gm 05/30/19 12:18 Dextrose 50% Syringe IV PUSH PRN PRN Hypoglycemia Protocol Glucagon 1 mg 05/30/19 12:18 Glucagon For Inj IM PRN PRN Hypoglycemia Protocol Glucose 15 gm 05/30/19 12:18 Glutose 15 PO PRN PRN Hypoglycemia Protocol Vancomycin HCl 2,000 mg in 500 mls @ 250 mls/hr 05/30/19 19:00 06/03/19 05:29 Vancomycin 2,000 Mg/D5w 500 Ml IVPB 175 mls/hr Q12H DAVID Administration Midazolam HCl 50 mg/ Dextrose 100 mls @ 0 mls/hr 05/30/19 06:00 06/02/19 10:00 IV CONT 0 mg/hr .Q0M DAVID 0 mls/hr Titration Protocol 0 MG/HR Fentanyl Citrate 2,500 mcg/ 250 mls @ 0 mls/hr 05/30/19 06:00 06/02/19 12:15 Sodium Chloride IV CONT 0 mcg/hr .Q0M DAVID 0 mls/hr Titration Protocol 0 MCG/HR Dextrose 1,000 mls @ 100 mls/hr 05/30/19 12:18 Dextrose 5% 1,000 Ml IVPB PRN PRN Hypoglycemia Protocol Ceftriaxone Sodium/Dextrose 1 gm in 50 mls @ 100 mls/hr 06/01/19 09:00 06/03/19 09:46 Rocephin 1 Gm/D5w 50 Ml IVPB 100 mls/hr Q24H DAVID Administration Dexmedetomidine HCl 400 mcg in 100 mls @ 0 mls/hr 06/02/19 07:35 06/02/19 12:15 Precedex 400 Mcg/D5w 100 Ml IV CONT 0 mcg/kg/hr .Q0M DAVID 0 mls/hr Titration Protocol 0 MCG/KG/HR Levetiracetam 750 mg/ Sodium 107.5 mls @ 286.667 mls/hr 06/03/19 16:00 Chloride IVPB Q8HR DAVID Insulin Aspart 4 - 8 units 05/30/19 12:00 06/03/19 05:54 Novolog SUB-Q 5 units Q6HR [facility] Administration Protocol Insulin Detemir 15 units 06/03/19 09:00 06/03/19 09:54 Levemi
--- NOTE | 2019-06-03 11:30 | NEURO_ITS ---
TEST: ELECTROENCEPHALOGRAM DIAGNOSIS: SEIZURES STATUS POST CARDIAC ARREST PATIENT NUMBER: [id number] EEG NUMBER: [id number] RECORDING DATE: 06/03/19 CLINICAL HISTORY: Patient is on vent but no sedation. Excessive facial twitching noted by the Electroencephalographer of the orofacial area throughout the tracing. Multiple artifacts are noted throughout the tracing. CONDITION OF RECORDING: Comatose. EEG DESCRIPTION: The record is continuously slow without much background alpha activity if at best in the theta range. The initial part of the tracing shows clearly plenty of artifacts and difficult to discern any spike and wave discharges however when the patient is relatively quiet and the artifacts are abated there are periodic sharp waves noted in bi-frontal area associated along with the eye movement, these are most likely epileptiform discharges. No lateralizing features are noted. Paroxysmal. Nonlateralizing. IMPRESSION: Abnormal record due to the presence of periodic sharp and spike waves in the bi-frontal area along with the eye and orofacial movements. Also associated with multiple sweat and electrode artifacts. The findings are consistent with epileptiform discharges as mentioned above. MTDD
--- NOTE | 2019-06-03 11:34 | PCDIET ---
Nutrition Follow-Up Complete: Nutrition Diagnosis: Inadequate oral intake related to oral intubation as evidenced by NPO status. Nutrition Goal: Patient to meet estimated nutritional needs. Goal met. Patient tolerating Glucerna 1.2 at 60mL/hr with no significant residuals. Last recorded weight is 122.4 kg which is decreased. -I/O noted. Bowel Motility: No documented bowel movement. Labs Reviewed: Glu (295), WBC (18.5) Meds Noted: Albuterol, Rocephin, Precedex, Novolog, Levemir, Atrovent Additional Notes: No documented skin breakdown. Will continue to monitor with same goal. Recommend continuing present tube feeding. Nutrition Monitoring and Evaluation: Follow up every Sunday/Sunday. Follow daily in ICU rounds.
--- NOTE | 2019-06-03 11:55 | WPDINTPN ---
Progress Note: A&P Assessment and Plan (1) Encephalopathy: Code(s): G93.40 - Encephalopathy, unspecified Status: Acute Assessment and Plan: patient has been off sedation for more than 24 hours, does not open his eyes to name, follows simple commands. Patient has had twitching at the angle of the mouth, vertical nystagmus. EEG has been ordered - likely seizures, increased Keppra to 750 mg IV q.8 hours - appreciate Neurology evaluation, neurologist agrees with increasing Keppra above in EEG (2) UTI due to Klebsiella species: Code(s): N39.0 - Urinary tract infection, site not specified; B96.89 - Other specified bacterial agents as the cause of diseases classified elsewhere Status: Acute Assessment and Plan: urine cultures growing Klebsiella, duggan susceptible. Continue ceftriaxone (3) Acute respiratory failure: Code(s): J96.00 - Acute respiratory failure, unspecified whether with hypoxia or hypercapnia Status: Acute Assessment and Plan: patient presented with acute respiratory failure requiring intubation - currently on mechanical ventilation, CMV mode, 10 of PEEP, 30% FiO2. - chest x-ray and ABGs reviewed - continue albuterol and Spiriva MDI - patient has been off all sedation since 06/02/2019 (4) Cardiopulmonary arrest with successful resuscitation: Code(s): I46.9 - Cardiac arrest, cause unspecified Status: Acute Assessment and Plan: patient with cardiac arrest, ROSC within 10 minutes. Mainly a respiratory per ED physician - continue full mechanical ventilation, ventilator adjusted after reviewing this chest x-ray and ABGs - continue diuresis - SARs-COV-2 PCR IS NEGATIVE - patient did have some jerky movements, his AICD was interrogated, no shocks were recorded. (5) CHF (congestive heart failure): Qualifiers: Heart failure chronicity: unspecified Heart failure type: unspecified Qualified Code(s): I50.9 - Heart failure, unspecified Code(s): I50.9 - Heart failure, unspecified Status: Acute Assessment and Plan: patient with history of heart failure, AICD, dual chamber, interrogated this morning,no shocks were noted, patient was in AFib Earlier on the day of admission. - echocardiogram ordered and pending report - continue diuresis and mechanical ventilation - appreciate Cardiology evaluation and recommendation - will increase Coreg, continue lisinopril (6) Pneumonia: Qualifiers: Laterality: right Lung location: lower lobe of lung Pneumonia type: due to unspecified organism Qualified Code(s): J18.9 - Pneumonia, unspecified organism Code(s): J18.9 - Pneumonia, unspecified organism Status: Acute Assessment and Plan: CT scan showed right-sided pneumonia, given patient's condition, antibiotics as above - cultures have been obtained - lactic acid normalized - blood cultures negative x2 so far, will discontinue vancomycin once sputum cultures are resulted - Sputum cultures ordered (7) Type 2 diabetes mellitus without complications: Qualifiers: Diabetes mellitus predatory animal exterminator insulin use: without predatory animal exterminator use Qualified Code(s): E11.9 - Type 2 diabetes mellitus without complications Code(s): E11.9 - Type 2 diabetes mellitus without complications Status: Acute Assessment and Plan: sliding scale insulin and Accu-Cheks - increase Levemir (8) Mixed hyperlipidemia: Code(s): E78.2 - Mixed hyperlipidemia Status: Acute Assessment and Plan: continue statin (9) Paroxysmal atrial fibrillation: Code(s): I48.0 - Paroxysmal atrial fibrillation Status: Acute Assessment and Plan: history of proximal AFib, currently in sinus rhythm rate control, will continue to monitor. Patient on Eliquis at home, will continue (10) DVT prophylaxis: Code(s): Z29.9 - Encounter for prophylactic measures, uns
--- NOTE | 2019-06-03 13:18 | CONS_ITS ---
DATE OF CONSULTATION: HISTORY OF PRESENT ILLNESS: 64 years old has been admitted to [facility] for the complaints of pneumonia in addition to the congestive heart failure. Additionally, patient carries the diagnosis of: 1. Type 2 diabetes mellitus. 2. Obstructive sleep apnea. 3. Status post AICD for VFib arrest in 2014. 4. Combined systolic and diastolic heart failure. He presented to the emergency room by the private vehicle with complaint of difficulties in breathing. He was initially noted to be apneic and pulseless. CPR was instituted. He was intubated, transferred to ICU after IV Lasix with good results of diuresis. Reportedly, he was feeling well and somewhat short of breath according to the records, starting last evening. CT of the chest revealed no emboli, but there was pneumonia with ground-glass appearance. The patient was treated for COVID. In the ICU, it was unresponsive. Additionally, patient carries the diagnosis of, 1. Atherosclerotic heart disease with coronary artery disease, angina. 2. Enlarged prostate with lower UTI. 3. Essential hypertension. 4. Hepatitis C antibody test, negative on 12/12/2016. 5. Metabolic syndrome. 6. Mixed hyperlipidemia. 7. Obesity. 8. Obstructive sleep apnea. 9. Old myocardial infarction. 10. Pacemaker. 11. Paroxysmal atrial fibrillation. 12. Type 2 diabetes mellitus without complication. SOCIAL HISTORY: He is a never smoker, never drinker. MEDICATIONS: At the time of admission to the hospital, he was taking multiple medications, which were listed: 1. Carvedilol 25 twice a day. 2. Glipizide 5 twice a day. 3. Metformin 850 three times a day. 4. KCl 10 mEq daily. 5. Amlodipine 10 mg daily. 6. Apixaban 5 mg twice a day. 7. Aspirin 81 mg daily. 8. Canagliflozin 100 mg daily. 9. Furosemide 40 mg daily. 10. Lisinopril 20 mg daily. 11. Simvastatin 20 mg daily. ALLERGIES: HE IS NOT ALLERGIC TO ANY MEDICATION. PHYSICAL EXAMINATION: VITAL SIGNS: On initial evaluation, his pulse was 68, respiration 14, and blood pressure 134/89. General physical examination revealed him to have the sluggishly reacting pupils. ET tube in place. Wheezing on the lung examination and neurological he was not responding and was noted to be twitching of the right arm intermittently. Since the admission, the patient has been seen in the critical care by Dr. Brisa Craolina, has also been seen by Cardiology Dr. Herrera and as per review of his note, treatment has been continued as such, has been followed by other physician as well. Most recently, he was seen by the hospitalist on 06/01 and investigation up until now includes particularly the most recent chest x-ray on 08/22/2013 showing significant improvement in opacities in the left lower lung zone, in addition to the atelectasis, pneumonia, and also pulmonary edema along with the small left pleural effusion. He has had a CT of the head on 05/29 which revealed him to have no acute intracranial abnormality and the venous Doppler study was done on 05/29 also, which was negative for DVT. There was mass in the medial left calf, likely hematoma. Abdominal x-rays on 05/29 were also negative with an NG tube in the stomach and he had a CTA at the time of admission, which was with no pulmonary embolism, diffuse lung disease, and small pleural effusion with cardiomegaly and nodular liver surface suspicious for the cirrhosis, bilateral acute anterior fractures. At this stage, the patient is receiving multiple medications, which includes amlodipine, apixaban, aspirin, canagliflozin, carvedilol, furosemide, glipizide, lisinopril, metformin, potassium, and simvastatin. Neuro consultation has been obtained for the seizure disorder and further recommendations made accordingly.
[2019-06-03 13:37] LABS: Glucose Point of Care 245 (65-105)
--- NOTE | 2019-06-03 17:43 | PM.IMPN ---
Progress Note: A&P Assessment and Plan (1) Acute respiratory failure: Code(s): J96.00 - Acute respiratory failure, unspecified whether with hypoxia or hypercapnia Status: Acute Assessment and Plan: on the basis of congestive heart failure and pneumonia. Cultured and placed on antibiotics and given IV diuresis. Continue to follow. repeat echo if cardiology thinks necessary possible extubate soon by isotope technician (2) Cardiopulmonary arrest with successful resuscitation: Code(s): I46.9 - Cardiac arrest, cause unspecified Status: Acute Assessment and Plan: primarily respiratory arrest. ICD did not fire. 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 Continue diuretic and NJ-inhibitor and beta silke restarted at low dose with his bp . per intensivists and cardiology (4) Pneumonia: Qualifiers: Laterality: right Lung location: lower lobe of lung Pneumonia type: due to unspecified organism Qualified Code(s): J18.9 - Pneumonia, unspecified organism Code(s): J18.9 - Pneumonia, unspecified organism Status: Acute Assessment and Plan: COVID returned negative today and probable all heart failure and/or additional community-acquired pneumonia. Cultured and placed on vancomycin and Zosyn(changed to ceftriaxone) (5) Type 2 diabetes mellitus without complications: Qualifiers: Diabetes mellitus remote computer terminal operator insulin use: without remote computer terminal operator use Qualified Code(s): E11.9 - Type 2 diabetes mellitus without complications Code(s): E11.9 - Type 2 diabetes mellitus without complications Status: Acute Assessment and Plan: sliding scale and A1c 6.9 FBS 254 (6) Obstructive sleep apnea (adult) (pediatric): Code(s): G47.33 - Obstructive sleep apnea (adult) (pediatric) Status: Acute Assessment and Plan: CPAP once extubated (7) Essential (primary) hypertension: Code(s): I10 - Essential (primary) hypertension Status: Acute Assessment and Plan: restarted at lesser dose 4/12 and will need titrated back up (8) Paroxysmal atrial fibrillation: Code(s): I48.0 - Paroxysmal atrial fibrillation Status: Acute Assessment and Plan: ventricular paced rhythm with history of underlying AFib. Continue anticoagulation (9) Elevated troponin: Code(s): R79.89 - Other specified abnormal findings of blood chemistry Status: Acute Assessment and Plan: probable secondary to heart failure and respiratory arrest and no acute coronary syndrome. as above coronaries were normal at catheterization in 2009 (10) DVT prophylaxis: Code(s): Z29.9 - Encounter for prophylactic measures, unspecified Status: Acute Assessment and Plan: Eliquis (11) UTI due to Klebsiella species: Code(s): N39.0 - Urinary tract infection, site not specified; B96.89 - Other specified bacterial agents as the cause of diseases classified elsewhere Status: Acute Assessment and Plan: pansensitive other than ampicillin. ceftriaxone started 05/31 Subjective Date/time seen: 06/03/19 17:43 Interval history: Date of visit 06/02. 64-year-old diabetic history of congestive heart failure admitted with pneumonia, respiratory arrest which precipitated cardiopulmonary arrest in the ER. ROSC in 10 minutes and patient on mechanical ventilation at present time. AICD did not fire and verified by interrogation that it did not. Seen by neurologist
[2019-06-03 18:22] LABS: Glucose Point of Care 256 (65-105)
--- NOTE | 2019-06-03 20:13 | PCRCNOTE ---
tx d'cd per DR. Bales pending covid results/pt still has fever
[2019-06-04] VITALS (24 sets, daily range): BP systolic 73–177; BP diastolic 51–99; PULSE 78–151; RESP 14–28; TEMP 37.5–38.5; O2SAT 91–100
[2019-06-04] MEDS: INSULIN ASPART (*BKC) 100 UNITS/ML SUB-Q ×4 (00:28→17:58)
[2019-06-04 00:34] LABS: Glucose Point of Care 278 (65-105)
[2019-06-04 04:44] LABS: Alveolar/Arterial O2 Gradient 56.5 mmHg; Base Excess ABG 10.7 mEq/l (+/-2.0); Carboxyhemoglobin 0.8 % THb (0-2.0); Fractional Inspired Oxygen 30 %; HCO3 ABG 35.3 mEq/l (22.0-26.0); Methemoglobin ABG 0.4 %THb (0-1.5); Oxygen Content ABG 21.1 %vol (16.0-22.0); Oxygen Saturation ABG 98.1 % (95.0-100.0); Oxyhemoglobin 96.5 % THb (90.0-100.0); PCO2 ABG 45.7 mmHg (35.0-45.0); PO2 ABG 103.7 mmHg (80.0-100.0); PO2 FiO2 Ratio Arterial Blood 3.46 %; Reduced Hemoglobin 2.3 %THb (0-5.0); Site Drawn LEFT RADIAL; Total Hemoglobin 15.5 g/dL (12.0-18.0); pH ABG 7.506 (7.350-7.450)
[2019-06-04 04:45] LABS: Arterial Blood Gas PEEP 10 cmH2O; Arterial Blood Gas Tidal Volume 500 ml; Arterial Blood Gas Vent Mode CMV; Arterial Blood Gas Ventilator rate 14 /MIN; Device VENTILATOR; Modified Allen's Test Pass
[2019-06-04] MEDS: PHENYTOIN SODIUM INJ 100 MG/2 ML VIAL (*BKC) IV PUSH ×3 (06:04→21:00)
[2019-06-04 06:34] LABS: Glucose Point of Care 247 (65-105)
[2019-06-04 06:45] LABS: Blood Urea Nitrogen 44 mg/dL (9-20); Calcium 9.6 mg/dL (8.4-10.2); Carbon Dioxide 35 mmol/L (22-30); Chloride 105 mmol/L (98-107); Estimated CRCL calculation 147 ml/min; Estimated Glomerular Filt Rate > 60; Glucose 284 mg/dL (75-110); Magnesium 2.8 mg/dL (1.6-2.3); Phosphorus 4.7 mg/dL (2.5-4.5); Potassium 3.7 mmol/L (3.4-5.0); Sodium 146 mmol/L (137-145)
[2019-06-04 07:04] LABS: Hemoglobin 14.7 g/dL (14.0-18.0); Mean Corpuscular HGB Conc 31.3 g/dl (32-36); Mean Corpuscular Hemoglobin 28.8 pg (26-34); Mean Platelet Volume 10.7 fl (7.4-10.4); Platelet Count Result 243 k/mm3 (150-375); Red Blood Count 5.11 M/mm3 (4.6-6.20); Red Cell Distribution Width 14.6 % (11.5-14.5); White Blood Count 16.4 K/mm3 (4.5-10.0)
[2019-06-04 07:14] LABS: Vancomycin Trough 15.8 ug/mL (10.0-20.0)
[2019-06-04] MEDS: LORAZEPAM INJ 2 MG/ML VIAL IV PUSH ×3 (08:03→11:27)
[2019-06-04] MEDS: lisinopriL 10 MG TABLET PO (08:14)
[2019-06-04] MEDS: APIXABAN 5 MG TABLET PO ×2 (08:14→18:11)
[2019-06-04] MEDS: INSULIN DETEMIR 100 UNITS/ML 25 UNITS SUB-Q ×2 (08:15→20:59)
[2019-06-04] MEDS: carvediloL 25 MG TABLET PO (08:15)
[2019-06-04] MEDS: SIMVASTATIN 20 MG TABLET PO (08:29)
[2019-06-04] MEDS: PANTOPRAZOLE SODIUM IV 40 MG VIAL IV PUSH (08:29)
--- NOTE | 2019-06-04 09:04 | WPDINTPN ---
Progress Note: A&P Assessment and Plan (1) Seizure: Code(s): R56.9 - Unspecified convulsions Status: Acute Assessment and Plan: patient with seizure activity, - increased Keppra to 1 g q.8 hours - started Dilantin this morning, discussed with Neurology who recommended starting valproic acid. Discontinue Dilantin - started valproic acid 1 g q.8 hours - EEG was done on 06/03/2019, presence of p.o. Arctic sharp and spike waves, and is a consistent with epileptiform discharges (2) Encephalopathy: Code(s): G93.40 - Encephalopathy, unspecified Status: Acute Assessment and Plan: likely due to cardiac arrest and hypoxic injury, seizure activity, - EEG as above - continue seizure treatment as above - will obtain CT brain (3) UTI due to Klebsiella species: Code(s): N39.0 - Urinary tract infection, site not specified; B96.89 - Other specified bacterial agents as the cause of diseases classified elsewhere Status: Acute Assessment and Plan: urine cultures growing Klebsiella, duggan susceptible. Continue ceftriaxone (4) Acute respiratory failure: Code(s): J96.00 - Acute respiratory failure, unspecified whether with hypoxia or hypercapnia Status: Acute Assessment and Plan: patient presented with acute respiratory failure requiring intubation - currently on mechanical ventilation, CMV mode, 10 of PEEP, 30% FiO2. - chest x-ray and ABGs reviewed - continue albuterol and Spiriva MDI - patient has been off all sedation since 06/02/2019, unable to place on SBT as patient is encephalopathic, has seizure activity. (5) Cardiopulmonary arrest with successful resuscitation: Code(s): I46.9 - Cardiac arrest, cause unspecified Status: Acute Assessment and Plan: patient with cardiac arrest, ROSC within 10 minutes. Mainly a respiratory per ED physician - continue full mechanical ventilation, ventilator adjusted after reviewing this chest x-ray and ABGs - continue diuresis - SARs-COV-2 PCR IS NEGATIVE - patient did have some jerky movements, his AICD was interrogated, no shocks were recorded. (6) CHF (congestive heart failure): Qualifiers: Heart failure chronicity: unspecified Heart failure type: unspecified Qualified Code(s): I50.9 - Heart failure, unspecified Code(s): I50.9 - Heart failure, unspecified Status: Acute Assessment and Plan: patient with history of heart failure, AICD, dual chamber, interrogated this morning,no shocks were noted, patient was in AFib Earlier on the day of admission. - echocardiogram ordered and pending report - continue diuresis and mechanical ventilation - appreciate Cardiology evaluation and recommendation - will increase Coreg, continue lisinopril (7) Pneumonia: Qualifiers: Laterality: right Lung location: lower lobe of lung Pneumonia type: due to unspecified organism Qualified Code(s): J18.9 - Pneumonia, unspecified organism Code(s): J18.9 - Pneumonia, unspecified organism Status: Acute Assessment and Plan: CT scan showed right-sided pneumonia, given patient's condition, antibiotics as above - cultures have been obtained - lactic acid normalized - blood cultures negative x2 so far, Discontinue vancomycin - Sputum cultures ordered (8) Type 2 diabetes mellitus without complications: Qualifiers: Diabetes mellitus long-term insulin use: without long-term use Qualified Code(s): E11.9 - Type 2 diabetes mellitus without complications Code(s): E11.9 - Type 2 diabetes mellitus without complications Status: Acute Assessment and Plan: sliding scale insulin and Accu-Cheks - patient is hyperglycemic, will increase Levemir (9) Mixed hyperlipidemia: Code(s): E78.2 - Mixed hyperlipidemia Status: Acute Assessment and Plan: continue statin (10) Paroxysmal atrial fibrilla
--- NOTE | 2019-06-04 11:08 | PCDIET ---
ICU Rounding Note: Patient tolerating Glucerna 1.2 at 60mL/hr with no significant residuals. Last recorded weight is 122.7kg which is stable. Bowel Motility: +BM on 06/03/19. Labs Reviewed: Glu (247), BUN (44), Cr (0.6), Na (146), PO4 (4.7), Mg (2.8) Meds Noted: Albuterol, Atrovent, Vancomycin, Rocephin, Keppra, Novolog, Protonix, Levemir, Dilantin (IV) Additional Notes: No documented skin breakdown. Recommend continuing present tube feeding at this time. Following daily in ICU rounds. Assessing/reassessing every Sunday/Sunday.
[2019-06-04 13:19] LABS: Glucose Point of Care 273 (65-105)
[2019-06-04] MEDS: LIDOCAINE HCL 1% PF INJ 5 ML VIAL INFILTRATE (14:00)
[2019-06-04] MEDS: PROPOFOL IV EMULSION 100 ML 7.4 MG IV CONT (14:55)
--- NOTE | 2019-06-04 16:08 | PM.IMPN ---
Progress Note: A&P Assessment and Plan (1) Acute respiratory failure: Code(s): J96.00 - Acute respiratory failure, unspecified whether with hypoxia or hypercapnia Status: Acute Assessment and Plan: on the basis of congestive heart failure and pneumonia. Cultured and placed on antibiotics and given IV diuresis. Continue to follow. repeat echo if cardiology thinks necessary possible extubate soon by custom tailor 06/04/19 16:08 patietn is 64 y/o male with PMHX of CAD, Atrial fib on eliquis, implanted pacemaker and defibrillator, apparently patient had fallen from ladder about a week ago and injured left leg, on the day of the admission patient had difficulty with breathing he was brought to the emergency department while in the emergency department patient went into cardiac arrest and CPR was started after 10 minutes ROSC, patient was intubated and admitted in ICU patient also had seizure-like activity EEG was done and which confirmed, patient was started on Dilantin, patient with respiratory failure on ventilation patient is COVID negative however patient's symptoms are suspicious patient on isolation and precautions are take patient is seen by custom tailor appreciate. (2) Cardiopulmonary arrest with successful resuscitation: Code(s): I46.9 - Cardiac arrest, cause unspecified Status: Acute Assessment and Plan: primarily respiratory arrest. ICD did not fire. 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 Continue diuretic and NJ-inhibitor and beta silke restarted at low dose with his bp . per intensivists and cardiology (4) Pneumonia: Qualifiers: Laterality: right Lung location: lower lobe of lung Pneumonia type: due to unspecified organism Qualified Code(s): J18.9 - Pneumonia, unspecified organism Code(s): J18.9 - Pneumonia, unspecified organism Status: Acute Assessment and Plan: COVID returned negative and probable all heart failure and/or additional community-acquired pneumonia. Cultured and placed on vancomycin and Zosyn(changed to ceftriaxone) (5) Type 2 diabetes mellitus without complications: Qualifiers: Diabetes mellitus senior care insulin use: without senior care use Qualified Code(s): E11.9 - Type 2 diabetes mellitus without complications Code(s): E11.9 - Type 2 diabetes mellitus without complications Status: Acute Assessment and Plan: sliding scale and A1c 6.9 FBS 254 (6) Obstructive sleep apnea (adult) (pediatric): Code(s): G47.33 - Obstructive sleep apnea (adult) (pediatric) Status: Acute Assessment and Plan: CPAP once extubated (7) Essential (primary) hypertension: Code(s): I10 - Essential (primary) hypertension Status: Acute Assessment and Plan: restarted at lesser dose 05/31 and will need titrated back up (8) Paroxysmal atrial fibrillation: Code(s): I48.0 - Paroxysmal atrial fibrillation Status: Acute Assessment and Plan: ventricular paced rhythm with history of underlying AFib. Continue anticoagulation (9) Elevated troponin: Code(s): R79.89 - Other specified abnormal findings of blood chemistry Status: Acute Assessment and Plan: probable secondary to heart failure and respiratory arrest and no acute coronary syndrome. as above coronaries were normal at catheterization in 2009 (10) DVT prophylaxis: Code(s): Z29.9 - Encounter for prophylactic measures, unspecifie
[2019-06-04 17:54] LABS: Glucose Point of Care 224 (65-105)
[2019-06-04] MEDS: ACETAMINOPHEN 325 MG TABLET 650 MG PO (17:57)
--- NOTE | 2019-06-04 19:20 | PC.NURSE ---
No seizure activity noted since RN started to propofol this afternoon.
--- NOTE | 2019-06-04 20:25 | PCRCNOTE ---
pt on mechanical ventilation/mdi not optional at this time
[2019-06-04 21:27] LABS: Glucose Point of Care 213 (65-105)
[2019-06-04] MEDS: SODIUM CHLORIDE 0.9% IV 1,000 ML 999 ML IV CONT (22:27)
[2019-06-05] VITALS (13 sets, daily range): BP systolic 71–126; BP diastolic 56–73; PULSE 76–93; RESP 14–21; TEMP 36.8–37.5; O2SAT 97–100
[2019-06-05] MEDS: INSULIN ASPART (*BKC) 100 UNITS/ML SUB-Q ×2 (00:19→12:38)
[2019-06-05 00:49] LABS: Glucose Point of Care 213 (65-105)
[2019-06-05 04:35] LABS: Alveolar/Arterial O2 Gradient 61.4 mmHg; Base Excess ABG 6.2 mEq/l (+/-2.0); Carboxyhemoglobin 0.7 % THb (0-2.0); Fractional Inspired Oxygen 30 %; HCO3 ABG 30.9 mEq/l (22.0-26.0); Methemoglobin ABG 0.4 %THb (0-1.5); Oxygen Saturation ABG 97.8 % (95.0-100.0); Oxyhemoglobin 96.1 % THb (90.0-100.0); PCO2 ABG 44.7 mmHg (35.0-45.0); PO2 FiO2 Ratio Arterial Blood 3.33 %; Reduced Hemoglobin 2.8 %THb (0-5.0); pH ABG 7.458 (7.350-7.450)
[2019-06-05 04:36] LABS: Arterial Blood Gas PEEP 10 cmH2O; Arterial Blood Gas Vent Mode CMV; Arterial Blood Gas Ventilator rate 14 /MIN; Device VENTILATOR; Modified Allen's Test Pass; Site Drawn LEFT RADIAL
[2019-06-05 04:37] LABS: Arterial Blood Gas Tidal Volume 500 ml
[2019-06-05 05:07] LABS: Hematocrit 42.6 % (42.0-52.0); Hemoglobin 12.6 g/dL (14.0-18.0); Mean Corpuscular HGB Conc 29.6 g/dl (32-36); Mean Corpuscular Hemoglobin 28.1 pg (26-34); Mean Corpuscular Volume 95.1 fl (80-100); Mean Platelet Volume 10.7 fl (7.4-10.4); Platelet Count Result 228 k/mm3 (150-375); Red Blood Count 4.48 M/mm3 (4.6-6.20); Red Cell Distribution Width 14.6 % (11.5-14.5); White Blood Count 16.4 K/mm3 (4.5-10.0)
[2019-06-05 05:24] LABS: Blood Urea Nitrogen 76 mg/dL (9-20); Calcium 8.8 mg/dL (8.4-10.2); Carbon Dioxide 35 mmol/L (22-30); Chloride 105 mmol/L (98-107); Estimated CRCL calculation 67 ml/min; Estimated Glomerular Filt Rate 51; Glucose 223 mg/dL (75-110); Magnesium 3.1 mg/dL (1.6-2.3); Phosphorus 6.1 mg/dL (2.5-4.5); Potassium 3.2 mmol/L (3.4-5.0); Sodium 145 mmol/L (137-145)
[2019-06-05] MEDS: PHENYTOIN SODIUM INJ 100 MG/2 ML VIAL (*BKC) IV PUSH ×2 (05:52→13:11)
[2019-06-05 06:13] LABS: Glucose Point of Care 193 (65-105)
[2019-06-05] MEDS: APIXABAN 5 MG TABLET PO (08:12)
[2019-06-05] MEDS: PANTOPRAZOLE SODIUM IV 40 MG VIAL IV PUSH (08:12)
[2019-06-05] MEDS: carvediloL 6.25 MG TABLET PO (08:12)
[2019-06-05] MEDS: SIMVASTATIN 20 MG TABLET PO (08:13)
[2019-06-05] MEDS: INSULIN DETEMIR 100 UNITS/ML 30 UNITS SUB-Q (08:37)
--- NOTE | 2019-06-05 09:52 | WPDINTPN ---
Progress Note: A&P Assessment and Plan (1) Seizure: Code(s): R56.9 - Unspecified convulsions Status: Acute Assessment and Plan: patient with seizure activity, - Continue Keppra, Dilantin and valproic acid. Normal seizures noted. - EEG was done on 06/03/2019, presence of p.o. Arctic sharp and spike waves, and is a consistent with epileptiform discharges - Discuss with Neurology, he stated prognosis is very poor - will discuss with family further plan of care (2) Encephalopathy: Code(s): G93.40 - Encephalopathy, unspecified Status: Acute Assessment and Plan: likely due to cardiac arrest and hypoxic injury, seizure activity, - EEG as above - continue seizure treatment as above - CT scan of the brain on 06/04/2019 did not show any acute intracranial abnormality (3) UTI due to Klebsiella species: Code(s): N39.0 - Urinary tract infection, site not specified; B96.89 - Other specified bacterial agents as the cause of diseases classified elsewhere Status: Acute Assessment and Plan: urine cultures growing Klebsiella, duggan susceptible. Continue ceftriaxone (4) Acute respiratory failure: Code(s): J96.00 - Acute respiratory failure, unspecified whether with hypoxia or hypercapnia Status: Acute Assessment and Plan: patient presented with acute respiratory failure requiring intubation - currently on mechanical ventilation, CMV mode, decrease peep to 8, FiO2 35% - chest x-ray and ABGs reviewed - continue albuterol and Spiriva MDI - patient has been off all sedation since 06/02/2019, unable to place on SBT as patient is encephalopathic, has seizure activity. (5) Cardiopulmonary arrest with successful resuscitation: Code(s): I46.9 - Cardiac arrest, cause unspecified Status: Acute Assessment and Plan: patient with cardiac arrest, ROSC within 10 minutes. Mainly a respiratory per ED physician - continue full mechanical ventilation, ventilator adjusted after reviewing this chest x-ray and ABGs - continue diuresis - SARs-COV-2 PCR IS NEGATIVE - patient did have some jerky movements, his AICD was interrogated, no shocks were recorded. (6) CHF (congestive heart failure): Qualifiers: Heart failure chronicity: unspecified Heart failure type: unspecified Qualified Code(s): I50.9 - Heart failure, unspecified Code(s): I50.9 - Heart failure, unspecified Status: Acute Assessment and Plan: patient with history of heart failure, AICD, dual chamber, interrogated this morning,no shocks were noted, patient was in AFib Earlier on the day of admission. - echocardiogram ordered and pending report - continue diuresis and mechanical ventilation - appreciate Cardiology evaluation and recommendation - will decrease Coreg as patient hypotensive overnight, hold lisinopril since creatinine bumped up (7) Pneumonia: Qualifiers: Laterality: right Lung location: lower lobe of lung Pneumonia type: due to unspecified organism Qualified Code(s): J18.9 - Pneumonia, unspecified organism Code(s): J18.9 - Pneumonia, unspecified organism Status: Acute Assessment and Plan: CT scan showed right-sided pneumonia, given patient's condition, antibiotics as above - cultures have been obtained - lactic acid normalized - blood cultures negative x2 so far, Discontinue vancomycin (8) Type 2 diabetes mellitus without complications: Qualifiers: Diabetes mellitus jail insulin use: 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
[2019-06-05] MEDS: PROPOFOL IV EMULSION 100 ML 3.7 MG IV CONT (10:27)
--- NOTE | 2019-06-05 10:52 | PCDIET ---
ICU Rounding Note: Pt current nutrition is Glucerna 1.2@60ml/hr. Nutrition recommendation: Agree Last recorded weight is 114.3kg (Down from 122.7kg) Bowel Motility: yesterday Labs Reviewed:Mg 1.3, PO4 6.1, K 3.2, GFR 51, Cr 1.40, Glucose 223 Meds Noted:Lisinopril, Insulin, Albuterol, Keppra, Dilantin Additional Notes: MD states family discussion today regarding brain activity and poor prognosis. Seizures with sedation reduction. Pt on propofol. Glucerna tolerated at 60ml/hr with 0 residuals. EN providing 1728kcals per day (300 kcals less than needs to promote controlled wt loss due to morbid obesity). We will continue to follow daily in ICU with f/u every T/F.
[2019-06-05 12:31] LABS: Glucose Point of Care 250 (65-105)
[2019-06-05] MEDS: LORAZEPAM INJ 2 MG/ML VIAL IV PUSH (14:59)
--- NOTE | 2019-06-05 15:51 | PC.NURSE ---
Notified Dr Carolina that pat breathing against vent and high alarming vent, doctor stated that it was probably seizure activity, 1458 ativan 2mg iv given, notified resp. therapy that pt continues to breath against vent, she went into room and shortly was trying to give him resps thru the ett, very difficult to beg, then at 1516 pt turnedgray, went pea on telemetry and no heart rate felt, at 1516 called code, see code sheet
--- NOTE | 2019-06-05 16:22 | PM.DDS ---
Discharge Sum: Prov Provider Primary care physician: UNKNOWN,DOCTOR Admitting provider: Faye Izquierdo DO Consults: 05/30/19 05:38 Consult to Physician Routine Comment: DR. CAROLINA NOTIFIED BY ED Consulting Provider: Brisa Carolina fundraising officer/MD group to consult: radha Reason for consultation: resp failure, chf, pna Has provider been notified: Yes 05/30/19 12:09 Consult to Physician Routine Comment: MESSAGE LEFT WITH THE OFFICE Consulting Provider: Fantasma Herrera fundraising officer/MD group to consult: Cardiology Reason for consultation: cardiac arrest, elevated troponin Has provider been notified: Yes 06/03/19 10:13 Consult to Physician Routine Comment: called and notified Consulting Provider: Luis Pulido fundraising officer/MD group to consult: NEUROLOGY Reason for consultation: SEIZURES, CARDIAC AREEST Has provider been notified: Yes Discharge Sum: Summary Date and Time Date of admission: 05/30/19 05:50 Date of : 06/05/19 Time of : 15:42 Summary Details: urvashi is 64 y/o male with PMHX of CAD, Atrial fib on eliquis, implanted pacemaker and defibrillator, apparently patient had fallen from ladder about a week ago and injured left leg, on the day of the admission patient had difficulty with breathing he was brought to the emergency department while in the emergency department patient went into cardiac arrest and CPR was started after 10 minutes ROSC, patient was intubated and admitted in ICU patient also had seizure-like activity EEG was done and which confirmed, patient was started on Dilantin, patient with respiratory failure on ventilation patient is COVID negative however patient's symptoms are suspicious patient on isolation and precautions are take 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 on June 04 around 1500 patient had cardiac arrest and code was called and ACLS protocol was carried, was not able to regain ROSC and was pronounced. Additional Data Confirmation of as documented by pronouncing clinician: no pulse, no respirations, no heart sounds and pupils fixed and dilated Family: at bedside Attending/PCP notified?: Yes Attending physician: Faye Izquierdo, DO Was code activated?: Yes Autopsy requested?: No yarn examiner skeins notified?: Yes Organ bank notified?: Yes Advance directives: No Hospice patient?: No
--- NOTE | 2019-07-01 11:10 | WPDINTPN ---
Progress Note: A&P Assessment and Plan (1) Seizure: Code(s): R56.9 - Unspecified convulsions Status: Acute Assessment and Plan: patient with seizure activity, myoclonic jerks - Continue Keppra, Dilantin and valproic acid. Sz noted, - EEG ordered - continue to monit (2) Encephalopathy: Code(s): G93.40 - Encephalopathy, unspecified Status: Acute Assessment and Plan: likely due to cardiac arrest and hypoxic injury, seizure activity, - EEG as above - continue seizure treatment as above - CT scan of the brain on 06/04/2019 did not show any acute intracranial abnormality (3) UTI due to Klebsiella species: Code(s): N39.0 - Urinary tract infection, site not specified; B96.89 - Other specified bacterial agents as the cause of diseases classified elsewhere Status: Acute Assessment and Plan: urine cultures growing Klebsiella, duggan susceptible. Continue ceftriaxone (4) Acute respiratory failure: Code(s): J96.00 - Acute respiratory failure, unspecified whether with hypoxia or hypercapnia Status: Acute Assessment and Plan: patient presented with acute respiratory failure requiring intubation - currently on mechanical ventilation, CMV mode, decrease peep to 8, FiO2 35% - chest x-ray and ABGs reviewed - continue albuterol and Spiriva MDI - Hold all sedation, - unable to place on SBT as patient is encephalopathic, has seizure activity. (5) Cardiopulmonary arrest with successful resuscitation: Code(s): I46.9 - Cardiac arrest, cause unspecified Status: Acute Assessment and Plan: patient with cardiac arrest, ROSC within 10 minutes. Mainly a respiratory per ED physician - continue full mechanical ventilation, ventilator adjusted after reviewing this chest x-ray and ABGs - continue diuresis - SARs-COV-2 PCR IS NEGATIVE - Pt with myoclonic jerks. Sz meds as above. (6) CHF (congestive heart failure): Qualifiers: Heart failure chronicity: unspecified Heart failure type: unspecified Qualified Code(s): I50.9 - Heart failure, unspecified Code(s): I50.9 - Heart failure, unspecified Status: Acute Assessment and Plan: patient with history of heart failure, AICD, dual chamber, interrogated this morning,no shocks were noted, patient was in AFib Earlier on the day of admission. - echocardiogram ordered and pending report - continue diuresis and mechanical ventilation - appreciate Cardiology evaluation and recommendation (7) Pneumonia: Qualifiers: Laterality: right Lung location: lower lobe of lung Pneumonia type: due to unspecified organism Qualified Code(s): J18.9 - Pneumonia, unspecified organism Code(s): J18.9 - Pneumonia, unspecified organism Status: Acute Assessment and Plan: CT scan showed right-sided pneumonia, given patient's condition, antibiotics as above - cultures have been obtained - lactic acid normalized - blood cultures negative x2 so far, Discontinue vancomycin (8) Type 2 diabetes mellitus without complications: Qualifiers: Diabetes mellitus prison insulin use: without prison use Qualified Code(s): E11.9 - Type 2 diabetes mellitus without complications Code(s): E11.9 - Type 2 diabetes mellitus without complications Status: Acute Assessment and Plan: sliding scale insulin and Accu-Cheks - patient is hyperglycemic, will increase Levemir (9) Mixed hyperlipidemia: Code(s): E78.2 - Mixed hyperlipidemia Status: Acute Assessment and Plan: continue statin (10) Paroxysmal atrial fibrillation: Code(s): I48.0 - Paroxysmal atrial fibrillation Status: Acute Assessment and Plan: history of proximal AFib, currently in sinus rhythm rate control, will continue to monitor. Patient on Eliquis at home, will continue (11) Hematoma of left lower extremity:
== END 2019-06-05 15:42 | disposition expired | DRG 207 ==
LOC: ANHED 04:27 → ANHICU 06:09
PROVIDERS: Emergency Medicine; Internal Medicine; Admitting Provider Family Medicine; Emergency Provider Emergency Medicine; Visit Provider Family Medicine
DX: J96.00 Acute respiratory failure, unspecified whether with hypoxia or hypercapnia (principal); I50.43 Acute on chronic combined systolic (congestive) and diastolic (congestive) heart failure; J18.9 Pneumonia, unspecified organism; I42.8 Other cardiomyopathies; N39.0 Urinary tract infection, site not specified; G93.1 Anoxic brain damage, not elsewhere classified; N17.9 Acute kidney failure, unspecified; E11.9 Type 2 diabetes mellitus without complications; G47.33 Obstructive sleep apnea (adult) (pediatric); I48.0 Paroxysmal atrial fibrillation; Z95.810 Presence of automatic (implantable) cardiac defibrillator; Z20.828 Contact with and (suspected) exposure to other viral communicable diseases; I25.10 Atherosclerotic heart disease of native coronary artery without angina pectoris; N40.0 Benign prostatic hyperplasia without lower urinary tract symptoms; E88.81 Metabolic syndrome and other insulin resistance; E78.2 Mixed hyperlipidemia; E66.9 Obesity, unspecified; Z68.31 Body mass index [BMI] 31.0-31.9, adult; I25.2 Old myocardial infarction; S80.12XA Contusion of left lower leg, initial encounter; I11.0 Hypertensive heart disease with heart failure; B96.1 Klebsiella pneumoniae [K. pneumoniae] as the cause of diseases classified elsewhere; I46.9 Cardiac arrest, cause unspecified; H55.00 Unspecified nystagmus; R25.3 Fasciculation; R56.9 Unspecified convulsions; W11.XXXA Fall on and from ladder, initial encounter; Z79.01 Long term (current) use of anticoagulants
CPT/HCPCS: 31500; 36415; 36569; 36600; 36680; 70450; 71045; 71275; 80048; 80053; 80202; 82375; 82728; 82805; 83036; 83050; 83605; 83615; 83735; 83880; 84100; 84145; 84484; 85025; 85027; 85380; 85610; 85730; 86140; 86850; 86900; 86901; 87040; 87070; 87077; 87086; 87088; 87186; 87205; 92950; 93005; 93970; 94003; 94640; 95816; 96365; 96366; 96367; 96368; 96372; 96375; 96376; 99291; A9270; C1751; C9113; J0171; J0282; J0696; J1165; J1265; J1650; J1815; J1940; J1953; J2060; J2250; J2543; J2704; J3010; J3370; J3475; J3480; J7030; J7050; Q9967